=== PATIENT | male | born 1995 | race Caucasian/White ===

== ENCOUNTER 2022-12-09 19:48 | Emergency (ER) | payer SELFPAY ==
[2022-12-09 19:53] VITALS: BP 135/77; PULSE 82; RESP 16; TEMP 36.8; O2SAT 98; BMI 45.6
--- NOTE | 2022-12-09 20:19 | ED.SKABFB1 ---
HPI - Skin/Abscess/Foreign Bdy General Chief complaint: Skin/Abscess/Foreign Body Stated complaint: rash Time Seen by Provider: 12/09/22 20:10 Source: patient Mode of arrival: walk-in History of Present Illness HPI narrative: 27-year-old male with a history of hypoglycemia And a history of hidradenitis presents for evaluation of a skin rash on his anterior chest wall, abdomen, underneath both armpits, on his lower abdominal wall and buttocks. The patient states that several weeks ago that he had poison emmy because he developed a salmon-colored rash underneath his left breast. The rash spread out onto the abdominal wall. He states that this rash is getting better after using poison emmy so but he has been itching and areas where the rash itches and has now broken out in a red tender area on his lower abdominal wall at his pants line. He denies any spread of this into his groin. He has not had a fever. He states he had nodules underneath his armpits that are getting better. He has had these in the past. This is consistent with hidradenitis. The rash on his abdominal wall is consistent with pityriasis rosea and he appears to have abdominal wall cellulitis. He states he is mostly concerned because he had several abdominal surgeries in the past with mesh. He is not having any fevers, lower abdominal pain, nausea or vomiting. MD complaint: Reports rash Related Data Allergies Allergy/AdvReac Type Severity Reaction Status Date / Time No Known Drug Allergies Allergy Verified 12/09/22 19:57 Review of Systems ROS Status of ROS 10 or more systems reviewed and unremarkable except as noted in history and below Exam Narrative Exam Narrative: Nurses note and vital signs reviewed and patient is not hypoxic. General: Alert, nontoxic, overweight male, no respiratory distress Skin: Warm, Dry. There is approximately 3 x 2 cm area of a salmon-colored flat eruption with multiple salmon-colored irregular shaped nontender nonindurated lesions on the abdominal wall and chest wall adjacent to this herald patch. The patient has several areas under both armpits that appear to be resolving areas of hidradenitis. On the lower abdominal wall distal to the umbilicus and closer to the patient's parent line there is an approximately 8 cm x 4 cm area of erythema with a lymphangitic streak going approximately 6 cm to the right. Abdomen is otherwise soft, nondistended nontender. There are no petechiae or purpura noted Head: Normocephalic, atraumatic Eye: Normal conjunctiva, no drainage, EOMI. PERRL Ears, Nose, Mouth, and Throat: oral mucosa is moist. Cardiovascular: Regular Rate and Rhythm Respiratory: Patient is in no distress, no accessory muscle use, lungs are clear to auscultation, no wheezing, rales or rhonchi Back: non-tender, no CVA tenderness bilaterally to percussion. GI: Normal bowel sounds, no tenderness to palpation, no masses appreciated. Musculoskeletal: The patient has no evidence of calf tenderness, no pitting edema, symmetrical pulses noted bilaterally Neurological: A&O x4, normal speech Psychiatric: Cooperative Constitutional Vital Signs, click to edit/add: Last Vital Signs Temp 98.2 F 12/09/22 19:53 Pulse 82 12/09/22 19:53 Resp 16 12/09/22 19:53 BP 135/77 12/09/22 19:53 Pulse Ox 98 12/09/22 19:53 Course Vital Signs Vital signs: Vital Signs Temperature 98.2 F 12/09/22 19:53 Pulse Rate 82 12/09/22 19:53 Respiratory Rate 16 12/09/22 19:53 Blood Pressure 135/77 12/09/22 19:53 Pulse Oximetry 98 12/09/22 19:53 Temperature 98.2 F 12/09/22 19:53 Pulse Rate 82 12/09/22 19:53 Respiratory Rate 16 12/09/22 19:53 Blood Pressure 135/77 12/09/22 19:53 Pulse Oximetry 98 12/09/22 19:53 MDM - Skin/Abscess/Foreign Bdy MDM Narrative Medical decision making narrative: Patient presents for evaluation of a lower abdominal rash with redness and tenderness after scratching this area. He is not diabetic but states he has hypoglycemia. He is overweight and states that he sweats a lot at work. He appears to have a lower abdominal cellulitis in this area as well as a resolving case of pityriasis rosea on his abdominal wall and chest wall. He also has healing areas of hidradenitis. He has not had any fever. There is no drainage in any of these lesions that I can culture. He was medicated in emergency department with a 75 mg of Augmentin and will be discharged home with a prescription for the same. I encouraged him to use warm compresses on this area. He has not had a fever. He has had abdominal surgery but the cellulitis in his lower abdominal wall does not likely approximate the mesh of his abdomen and appears to be a local cellulitis to the lower abdominal wall. Discharge Plan Discharge Chief Complaint: Skin/Abscess/Foreign Body Clinical Impression: Pityriasis in adult, Cellulitis of abdominal wall, Hidradenitis Patient Disposition: Home, Self-Care Time of Disposition Decision: 20:18 Condition: Good Instructions: Cellulitis (ED), Seborrheic Dermatitis (DC), Hidradenitis Suppurativa (ED) Stand Alone Forms: Portal Instructions Referrals: Steve Cheung MD [Primary Care Provider] - 1 week
[2022-12-09] MEDS: AMOXICILLIN/POTASSIUM CLAV 1 TAB TABLET PO (20:36)
== END 2022-12-09 20:50 | disposition home or self-care (01) ==
PROVIDERS: Emergency Provider Emergency Medicine; PCP Family Medicine
DX: L21.0 Seborrhea capitis (principal); L03.311 Cellulitis of abdominal wall; L73.2 Hidradenitis suppurativa
CPT/HCPCS: 99283

== ENCOUNTER 2023-03-05 15:41 | Emergency (ER) | payer SELFPAY ==
[2023-03-05] VITALS (30 sets, daily range): BP systolic 107–128; BP diastolic 63–72; PULSE 79–80; RESP 18; TEMP 36.8; O2SAT 96–99; BMI 45.6
--- NOTE | 2023-03-05 16:48 | XR_ITS ---
The [address] [address] Patient Name: DAMION MANCINI MRN: [id number] date: 1995 Sex: M Assigned Patient Location: ED.MAIN Current Patient Location: ER Accession/Order Number: [id number] Exam Date: 03/05/2023 16:50 Report Date: 03/05/2023 17:31 At the request of: MAURO JACOBSEN Procedure: XR abdomen 1V EXAM: XR abdomen 1V HISTORY: Right lower quadrant abdominal pain COMPARISON: None. TECHNIQUE: 3 views FINDINGS: IMPRESSION: Stool burden is unremarkable. Bowel gas pattern is nonobstructed. No free intraperitoneal air or visualized intra-abdominal calcification. No visualized acute osseous abnormality. Chronic abnormal morphology of the right femoral head. The right hip joint is unremarkable. The left hip joint, pubic symphysis and sacroiliac joints along with the visualized spine exhibit no abnormality. Electronically authenticated by: DAMION GRIFFIN Date: 03/05/2023 17:31
--- NOTE | 2023-03-05 17:31 | CT_ITS ---
The [address] [address] Patient Name: DAMION MANCINI MRN: [id number] date: 1995 Sex: M Assigned Patient Location: ER Current Patient Location: ER Accession/Order Number: [id number] Exam Date: 03/05/2023 17:45 Report Date: 03/05/2023 18:47 At the request of: MAURO JACOBSEN Procedure: CT abdomen pelvis w con EXAM: CT abdomen pelvis w con HISTORY: Rule out incarceration vs strangle, abdominal pain. Constipation. COMPARISON: None. TECHNIQUE: Enhanced helical acquisition obtained through the abdomen and the pelvis. FINDINGS: The visualized lung bases and pleural spaces are clear. Unremarkable gallbladder. No biliary ductal dilatation. The liver, spleen, pancreas, adrenal glands and the kidneys are unremarkable. No enlarged lymph nodes within the abdomen or the pelvis. Large right spigelian hernia with defect measuring approximately 5.6 cm, containing omental and mesenteric fat with extensive stranding of the fat as well as an area of fat necrosis. There is protrusion of a nonobstructed distal ileal small bowel loop through the defect into the proximal aspect of the hernia sac. Normal appendix. CT/CT abdomen pelvis w con IMPRESSION: Large right spigelian hernia containing omentum and mesenteric fat with extensive stranding as well as an area of fat necrosis. Protrusion of distal ileal small bowel through the defect into the proximal aspect of the hernia sac without obstruction. Electronically authenticated by: POP VERA Date: 03/05/2023 18:47
[2023-03-05] MEDS: 0.9 % SODIUM CHLORIDE 1,000 ML 1000 ML IV (18:00)
[2023-03-05 18:05] LABS: Basophils Percent Auto 0.4 % (0.2-2.0); Eosinophils Absolute Auto 0.2 10^3/uL (0.0-0.7); Eosinophils Percent Auto 2.1 % (0.9-7.0); Hematocrit 45.8 % (42.0-54.0); Hemoglobin 15.1 g/dL (14.0-18.0); Immature Granulocytes Abs Auto 0.03 10^3/uL (0.00-0.03); Immature Granulocytes Pct Auto 0.3 % (0.0-0.5); Lymphocytes Absolute Auto 2.7 10^3/uL (1.2-3.8); Lymphocytes Percent Auto 24.1 % (20.5-60.0); Mean Corpuscular Volume 88.1 fL (80.0-94.0); Mean Platelet Volume 10.8 fL (9.5-13.5); Monocytes Absolute Auto 1.4 10^3/uL (0.3-0.8); Monocytes Percent Auto 12.1 % (1.7-12.0); Neutrophils Absolute Auto 6.8 10^3/uL (1.4-6.5); Platelet Count 237 10^3/uL (150-450); Red Cell Distribution Width 12.3 % (11.0-15.0); White Blood Count 11.2 10^3/uL (4.0-11.0)
[2023-03-05 18:16] LABS: Alanine Aminotransferase 52 U/L (16-63); Albumin Globulin Ratio 1.1; Albumin Level 4.3 g/dL (3.4-5.0); Alkaline Phosphatase 62 U/L (46-116); Anion Gap 13.2; Aspartate Amino Transferase 19 U/L (15-37); BUN Creatinine Ratio 21.5; Bilirubin Total 0.7 mg/dL (0.2-1.0); Calcium 9.3 mg/dL (8.5-10.1); Carbon Dioxide 27.6 mmol/L (21.0-32.0); Chloride 99 mmol/L (98-107); Estimated GFR (African America >60 (>=60); Estimated GFR (Non-African Ame >60 (>=60); Glucose 97 mg/dL (74-106); Potassium 3.8 mmol/L (3.5-5.1); Sodium 136 mmol/L (136-145); Total Protein 8.3 g/dL (6.4-8.2)
--- NOTE | 2023-03-05 18:32 | ED_ITS ---
HPI - General Adult General Chief complaint: Abdominal Pain Stated complaint: PROBLEMS WITH GOING TO BATHROOM Time Seen by Provider: 03/05/23 16:03 Source: patient Mode of arrival: walk-in History of Present Illness HPI narrative: Patient is a 27-year-old male who is presenting to the ER with chief complaint of right lower quadrant abdominal pain, concern for hernia complications. Patient has had multiple abdominal surgeries in the past by Dr. Delacruz, and also Dr. Hendrickson in [place] as well. Patient is a child around 10 years old have appendicitis. Patient says that he was having a bowel movement where he was pushing really hard after his appendicitis surgery and he created a abdominal wall hernia. Patient's had several right lower quadrant abdominal wall hernia surgeries, he initially had a mesh that was placed by Dr. Delacruz. The mesh became infected, and eventually that was taken out. Patient says that he still has a small piece of mesh to the right lower quadrant. Patient says that he typically will have the hernia to the right lower quadrant and he can push it back in. Patient also is having redness to the skin to the right lower quadrant as well. Patient has had cellulitis to that area as well. Patient does not have his appendix. Patient has no fever or chills. Patient does not have much pain unless he is hitting his abdomen against a hard object. Patient has no difficulty urinating. No testicular pain. Patient is passing small intermittent hard stool since Friday. Patient says that he believes his hernia has come out since Friday and has not been able to self reduce it like he typically does. Patient has been passing gas. No nausea or vomiting. Mother at bedside All systems are negative except as noted/marked. All systems reviewed and otherwise negative. Nurses note and vital signs reviewed and patient is not hypoxic. General: The patient appears well and in no apparent distress. Patient is resting comfortably on cart. Patient is not toxic, lethargic, or listless Skin: Warm, dry, no pallor noted. There is no rash noted. No petechiae, purpura. Head: Normocephalic, atraumatic Eye: Normal conjunctiva, no drainage, EOMI. PERRL Ears, Nose, Mouth, and Throat: oral mucosa is moist. Nares patent. Mouth without vesicles. Cardiovascular: Regular Rate and Rhythm, no murmur, gallop, rub Respiratory: Patient is in no distress, no accessory muscle use, lungs are clear to auscultation, no wheezing, rales or rhonchi Back: non-tender, no CVA tenderness bilaterally to percussion. No CT LS midline pain GI: Obese, moderate tenderness to palpation to the right lower quadrant, the ventral wall hernia is palpated. Patient does have diffuse redness to the right lower quadrant as well. No tenderness to palpation, no masses appreciated. No rebound, guarding, or rigidity noted. No distention Musculoskeletal: Patient has full range of motion of all of the extremities, no motor, sensory, or focal neurological deficits Neurological: A&O x4, normal speech Psychiatric: Cooperative Related Data Allergies Allergy/AdvReac Type Severity Reaction Status Date / Time No Known Drug Allergies Allergy Verified 12/09/22 19:57 Exam Constitutional Vital Signs, click to edit/add: Last Vital Signs Temp 98.2 F 03/05/23 15:59 Pulse 80 03/05/23 15:59 Resp 18 03/05/23 15:59 BP 127/72 03/05/23 19:27 Pulse Ox 99 03/05/23 19:50 O2 Del Method Room Air 03/05/23 15:59 Course Vital Signs Vital signs: Vital Signs Temperature 98.2 F 03/05/23 15:59 Pulse Rate 80 03/05/23 15:59 Respiratory Rate 18 03/05/23 15:59 Blood Pressure 128/69 03/05/23 15:59 Pulse Oximetry 97 03/05/23 15:59 Oxygen Delivery Method Room Air 03/05/23 15:59 Temperature 98.2 F 03/05/23 15:59 Pulse Rate 80 03/05/23 15:59 Respiratory Rate 18 03/05/23 15:59 Blood Pressure 127/72 03/05/23 19:27 Pulse Oximetry 99 03/05/23 19:50 Oxygen Delivery Method Room Air 03/05/23 15:59 Medical Decision Making [facility] Narrative Medical decision making narrative: My initial history and physical exam I attempted to reduce patient's right lower quadrant ventral wall hernia. Soft pressure was done for approximately 5 minutes without relief. Patient tolerated well without difficulty. Patient had IV labs done, along with CT of the abdomen pelvis with IV contrast along with lactic acid and given 1 L of IV fluid. KUB XR: Stool burden is unremarkable. Bowel gas pattern is nonobstructed. No free intraperitoneal air or visualized intra-abdominal calcification. No visualized acute osseous abnormality. Chronic abnormal morphology of the right femoral head. The right hip joint is unremarkable. The left hip joint, pubic symphysis and sacroiliac joints along with the visualized spine exhibit no abnormality. Patient's white blood cell count is 11.2, lactic acid is negative. Patient's CT report shows: IMPRESSION: Large right spigelian hernia containing omentum and mesenteric fat with extensive stranding as well as an area of fat necrosis. Protrusion of distal ileal small bowel through the defect into the proximal aspect of the hernia sac without obstruction. [address] I have spoken to Dr. Hwang. Secondary to having the Spigelian hernia with skin changes of early cellulitis and the fat necrosis and having previous surgeries, is recommended that patient follow-up at a tertiary care center. 190 Patient is agreeing to be transferred to [facility] where Dr. Hendrickson has done surgeries before. Mother at bedside, she agrees. Phone call has been made to [facility] for transfer. Patient's case has been transitioned to Dr. Romero for final disposition and transfer To tertiary care center as recommended by Dr. Hwang.. Critical care time 31 minutes exclusive from separate billable procedures that were performed. The following was considered in the determination of critical care but not limited to the level of medical decision making, intensive cardiac and/or respiratory monitoring, frequent vital sign monitoring, evaluation of laboratory studies, evaluation of radiographic studies, oxygen monitoring, and constant monitoring and speaking to family at bedside Lab Data Lab results reviewed: Yes I reviewed the patient's lab results Labs: Lab Results 03/05/23 Range/Units 17:43 WBC 11.2 H (4.0-11.0) 10^3/uL RBC 5.20 (4.70-6.10) 10^6/uL Hgb 15.1 (14.0-18.0) g/dL Hct 45.8 (42.0-54.0) % MCV 88.1 (80.0-94.0) fL MCH 29.0 (25.9-34.0) pg MCHC 33.0 (29.9-35.2) g/dL RDW 12.3 (11.0-15.0) % Plt Count 237 (150-450) 10^3/uL MPV 10.8 (9.5-13.5) fL Neut % (Auto) 61.0 (43.0-75.0) % Lymph % (Auto) 24.1 (20.5-60.0) % Atlantic % (Auto) 12.1 H (1.7-12.0) % Eos % (Auto) 2.1 (0.9-7.0) % Baso % (Auto) 0.4 (0.2-2.0) % Neut # (Auto) 6.8 H (1.4-6.5) 10^3/uL Lymph # (Auto) 2.7 (1.2-3.8) 10^3/uL Atlantic # (Auto) 1.4 H (0.3-0.8) 10^3/uL Eos # (Auto) 0.2 (0.0-0.7) 10^3/uL Baso # (Auto) 0.0 (0.0-0.1) 10^3/uL Abs Immat Gran (auto) 0.03 (0.00-0.03) 10^3/uL Imm/Tot Granulo (auto) 0.3 (0.0-0.5) % Sodium 136 (136-145) mmol/L Potassium 3.8 (3.5-5.1) mmol/L Chloride 99 (98-107) mmol/L Carbon Dioxide 27.6 (21.0-32.0) mmol/L Anion Gap 13.2 BUN 17.0 (7.0-18.0) mg/dL Creatinine 0.79 (0.70-1.30) mg/dL Est GFR ( Amer) >60 (>=60) Est GFR (Non-Af Amer) >60 (>=60) BUN/Creatinine Ratio 21.5 Glucose 97 (74-106) mg/dL Lactate 1.0 (0.4-2.0) mmol/L Calcium 9.3 (8.5-10.1) mg/dL Total Bilirubin 0.7 (0.2-1.0) mg/dL AST 19 (15-37) U/L ALT 52 (16-63) U/L Alkaline Phosphatase 62 (46-116) U/L Total Protein 8.3 H (6.4-8.2) g/dL Albumin 4.3 (3.4-5.0) g/dL Globulin 4.0 g/dL Albumin/Globulin Ratio 1.1 Lipase 28.0 (16.0-77.0) U/L Discharge Plan Discharge Patient Disposition: Still a Patient
[2023-03-05] MEDS: PIPERACILLIN SODIUM/TAZOBACTAM 4.5 GM in 0.9 % SODIUM CHLORIDE 50 ML IV (19:46)
[2023-03-06] VITALS (44 sets, daily range): BP systolic 101–153; BP diastolic 53–91; PULSE 84–86; RESP 16; TEMP 36.6; O2SAT 94–99
[2023-03-06] MEDS: MORPHINE SULFATE 4 MG/ML VIAL IV ×2 (00:21→07:56)
[2023-03-06] MEDS: PIPERACILLIN SODIUM/TAZOBACTAM 3.375 GM in 0.9 % SODIUM CHLORIDE 50 ML IV ×3 (07:30→23:13)
[2023-03-06] MEDS: HYDROMORPHONE HCL 2 MG/ML VIAL IV (13:50)
[2023-03-06] MEDS: 0.9 % SODIUM CHLORIDE 1,000 ML 125 ML IV ×2 (13:50→22:01)
[2023-03-06] MEDS: HYDROMORPHONE HCL 1 MG/ML CARTRIDGE IV (17:59)
[2023-03-06 18:16] LABS: Basophils Percent Auto 0.3 % (0.2-2.0); Eosinophils Absolute Auto 0.2 10^3/uL (0.0-0.7); Eosinophils Percent Auto 2.3 % (0.9-7.0); Hematocrit 42.4 % (42.0-54.0); Hemoglobin 13.6 g/dL (14.0-18.0); Immature Granulocytes Abs Auto 0.02 10^3/uL (0.00-0.03); Immature Granulocytes Pct Auto 0.2 % (0.0-0.5); Lymphocytes Absolute Auto 2.1 10^3/uL (1.2-3.8); Lymphocytes Percent Auto 23.3 % (20.5-60.0); Mean Corpuscular HGB Conc 32.1 g/dL (29.9-35.2); Mean Corpuscular Hemoglobin 28.7 pg (25.9-34.0); Mean Corpuscular Volume 89.5 fL (80.0-94.0); Mean Platelet Volume 10.4 fL (9.5-13.5); Monocytes Absolute Auto 1.1 10^3/uL (0.3-0.8); Monocytes Percent Auto 11.6 % (1.7-12.0); Neutrophils Absolute Auto 5.7 10^3/uL (1.4-6.5); Neutrophils Percent Auto 62.3 % (43.0-75.0); Platelet Count 203 10^3/uL (150-450); Red Blood Count 4.74 10^6/uL (4.70-6.10); Red Cell Distribution Width 12.2 % (11.0-15.0); White Blood Count 9.1 10^3/uL (4.0-11.0)
== END 2023-03-06 23:52 | disposition short-term general hospital (02) ==
PROVIDERS: Emergency Medicine; Emergency Medicine Emergency Medical Services; Emergency Provider Emergency Medicine; PCP Family Medicine
DX: K43.6 Other and unspecified ventral hernia with obstruction, without gangrene (principal); E66.9 Obesity, unspecified; Z68.42 Body mass index [BMI] 45.0-49.9, adult
CPT/HCPCS: 36415; 74018; 74177; 80053; 83605; 83690; 85025; 96365; 96366; 96375; 96376; 99285; J1170; Q9967

== ENCOUNTER 2024-12-30 11:23 | Outpatient (OUT) | payer BC, SELFPAY ==
--- NOTE | 2024-12-30 11:42 | CT_ITS ---
[address] [address] Patient Name: DAMION MANCINI MRN: [id number] date: 1995 Sex: M Assigned Patient Location: [facility] Current Patient Location: RAD Accession/Order Number: [id number] Exam Date: 12/30/2024 12:50 Report Date: 12/30/2024 13:06 At the request of: NIRU HASTINGS MD Procedure: CT abdomen pelvis wo con CT abdomen pelvis wo con 12/30/2024 12:57 PM SIGNS AND SYMPTOMS: ^with oral contrast ^abdominal wall hernia, redness and pain along the anterior abdominal wall TECHNIQUE: Multidetector ct axial images of the abdomen and pelvis were obtained without IV contrast. Multiplanar reformats were performed and reviewed to further define anatomy and possible pathology. CT was performed with one or more of the following dose reduction techniques: Automated exposure control, adjustment of the mA and/or kV according to patient size, or use of iterative reconstruction technique. COMPARISON: 03/05/2023 FINDINGS: Lower Chest: Within normal limits. ABDOMEN: Liver: Within normal limits. Bile Ducts: Normal caliber. Gallbladder: No calcified gallstones. Normal caliber wall. Pancreas: Within normal limits. Spleen: Within normal limits. Adrenals: Within normal limits. Kidneys: Within normal limits. Pelvis: Reproductive Organs: No pelvic masses. Ureters: Within normal limits. Bladder: Within normal limits. Bowel: Normal caliber. There is a normal appendix in the right lower quadrant. Mesenteric Lymph Nodes: No enlarged mesenteric lymph nodes. Peritoneum: No ascites or free air, no fluid collection. Vessels: within normal limits Retroperitoneum: Within normal limits. Abdominal Wall: There is a ventral wall hernia containing intraperitoneal fat, nonobstructed:, And is accompanied by fat stranding within the hernia sac in the adjacent anterior abdominal wall. 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 Mild degenerative changes are noted in the thoracolumbar spine as well as the hips and sacroiliac joints. CT/CT abdomen pelvis wo con IMPRESSION: There is a ventral wall hernia containing intraperitoneal fat, nonobstructed:, And is accompanied by fat stranding within the hernia sac in the adjacent anterior abdominal wall. This was present on the previous study. No bowel obstruction or obstructive uropathy. Additional chronic findings are noted as above. Impression dictated by: Ad Orozco M.D. 12/30/2024 1:06 PM Dictation Location: Initial State TechnologiesPEACEHEALTH SOUTHWEST MEDICAL CENTERTextingly Electronically authenticated by: [id number] Y Date: 12/30/2024 13:06
== END 2024-12-30 11:24 | disposition home or self-care (01) ==
PROVIDERS: PCP Family Medicine; Visit Provider Family Medicine
DX: K43.9 Ventral hernia without obstruction or gangrene (principal)
CPT/HCPCS: 74176

== ENCOUNTER 2025-02-09 19:41 | Emergency (ER) | payer BC, SELFPAY ==
--- OUTSIDE RECORDS SUMMARY | 2025-01-31 09:55 | XMS_ITS | Encounter Summary ---
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 Role Phone Steve Cheung MD Primary Care Provider [phone] Reason for Visit * Auth/Cert (Routine)SpecialtyDiagnoses / ProceduresReferred By ContactReferred To Contact Diagnoses Incisional hernia, without obstruction or gangrene Incisional hernia, without obstruction or gangrene [K43.2] Procedures TX RPR AA HERNIA 1ST 3-10 CM REDUCIBLE ROBOTIC INCISIONAL HERNIA REPAIR WITH MESH Jonathan Hendrickson MD [address] [address] Phone: tel: fax: [facility] Main Operating Room [address] [place] [address] Phone: tel: fax: Referral IDStatusReasonStart DateExpiration DateVisits RequestedVisits [id number] Encounter Details DateTypeDepartmentCare Team (Latest Contact Info)Wuuywieqkeo03/10/2025 9:55 AM EST - 01/31/2025 6:51 PM ESTHospital Encounter [facility] Main Operating Room [address] [place] [address] Jonathan Hendrickson MD Leonor Valleton Violeta [address] [address] Recurrent ventral hernia (Primary Dx); Incisional hernia, without obstruction or gangrene Discharge Disposition: Home or Self Care (01) Social History Tobacco UseTypesPacks/DayYears UsedDateSmoking Tobacco: NeverSmokeless Tobacco: NeverAlcohol UseStandard Drinks/WeekCommentsNot Currently0 (1 standard drink = 0.6 oz pure alcohol)Humiliation, Afraid, Rape, and Kick questionnaireAnswerDate RecordedWithin the last year, have you been afraid of your partner or ex-partner?No01/05/2025Emotionally AbusedNot on file01/05/2025Physically Abused Not on file01/05/2025Sexually AbusedNot on file01/05/2025Overall Financial Resource Strain (CARDIA)AnswerDate RecordedHow hard is it for you to pay for the very basics like food, housing, medical care, and heating?Not hard at all 03/19/2023HQ-2AnswerDate RecordedPatient Health Questionnaire-2 Score0 01/05/2025UT Safety & EnvironmentAnswerDate RecordedWithin the last year, have you been afraid of your partner or ex-partner?No04/02/2023Within the last year, have you been humiliated or emotionally abused in other ways by your partner or ex-partner?No04/02/2023Within the last year, have you been kicked, hit, slapped, or otherwise physically hurt by your partner or ex-partner?No04/02/2023Within the last year, have you been raped or forced to have any kind of sexual activity by your partner or ex-partner?No04/02/2023In the past year have you been physically or sexually abused?Unrecognized value04/02/2023TransportationAnswer Date RecordedIn the past 12 months, has lack of transportation kept you from medical appointments or from getting medications?No03/19/2023Lack of Transportation (Non-Medical)Not on file03/19/2023Housing Stability Vital Sign AnswerDate RecordedUnable to Pay for Housing in the Last YearNot on file 03/19/2023Number of Places Lived in the Last YearNot on file03/19/2023In the last 12 months, was there a time when you did not have a steady place to sleep or slept in plac[place]elter (including now)?No03/19/2023Hunger Vital SignAnswerDate RecordedWithin the past 12 months, you worried that your food would run out before you got the money to buymore.Never true03/19/2023Ran Out of Food in the Last YearNot on file03/19/2023Sex and Gender InformationValueDate RecordedSex Assigned at BdgkxHhla27/14/2025 2:08 PM EDTLegal PxjSrnn9809/20/2021 12:05 AM EDT Gender CuzadimmImch29/14/2025 2:08 PM EDTSexual OrientationHeterosexual or Wvtaukvr46/15/2025 10:34 AM EDTdocumented as of this encounter Last Filed Vital Signs Vital SignReadingTime TakenCommentsBlood Jhjrifvw765/8201/31/2025 6:00 PM EST Zwmpv942601/31/2025 6:00 PM XFEZdvcuwhfvhz41 ??C (96.8 ??F)01/31/2025 4:47 PM EST Respiratory Ahww934204/02/2024 6:00 PM ESTOxygen Ouibydetrl37%01/31/2025 6:00 PM ESTInhaled Oxygen Concentration--Weight--Height--Body Mass Index--documented in this encounter Functional Status * QuestionAnswerDate of NnbzcdclodDpnxnpFB894/8201/31/2025 6:00 PM Areli Johnson RNPulse8501/31/2025 6:00 PM Areli Johnson RNHeart Rate Source Ackddva7801/31/2025 6:00 PM Areli Johnson RNPatient PositionLying 01/31/2025 6:00 PM Areli Johnson RN * Patient's Stated Pain GoalAnswerDate of DxomvffqlrGmyghn923/10/2025 6:09 PM Areli Johnson RN * Pain Assessment TimerQuestionAnswerDate of AssessmentAuthorRestart Pain Assessment SunlpJgn41/10/2025 6:09 PM Areli Johnson RN * Sepsis Model ScoresQuestionAnswerDate of AssessmentAuthorEarly Detection of Sepsis Score0.311 6:46 PM ESTChronicles, Batchq * Pain AssessmentQuestionAnswerDate of AssessmentAuthorPain LocationAbdomen 01/31/2025 6:00 PM Areli Johnson RNWong-Wiledr FACES Pain Rating0 01/31/2025 4:47 PM Areli Johnson RNRamsarc Scale (RS): Dvzsc76204/02/2024 6:00 PM Areli Johnson RNPain TypeSurgical pain01/31/2025 6:00 PM EST Areli Puentes RNPain Assessment0-10104/02/2024 6:00 PM Areli Johnson RN * Pain ScoreAnswerDate of AssessmentAuthor5 - Moderate pain01/31/2025 6:09 PM Areli Johnson RN * Audit Alcohol ScreeningQuestionAnswerDate of AssessmentAuthorHow often do you have a drink containing alcohol? 10:10 AM Maria R Molina RN * Fall RiskQuestionAnswerDate of AssessmentAuthorWorried about fallin 01/05/2025 10:40 AM Debo Oconnell MAOne or more falls in the last year:No 01/05/2025 10:40 AM Debo Oconnell MAFeels unsteady when walkin 10:40 AM Debo Oconnell MA * Head, Ears, Eyes, Nose, and Throat (HEENT)QuestionAnswerDate of Assessment AuthorHead, Ears, Eyes, Nose, and Throat (WDL)WDL104/02/2024 5:45 PM Areli Bravo RN * Over the past 2 weeks, how often have you been bothered by any of the following problems?QuestionAnswerDate of AssessmentAuthorLittle interest or pleasure in doing thingsNot at all01/05/2025 10:40 AM Debo Oconnell MA Feeling down, depressed, or hopelessNot at all01/05/2025 10:40 AM Debo Oconnell MAPatient Health Questionnaire-2 Drkna206 10:40 AM Debo Oconnell MA * Vital SignsQuestionAnswerDate of TvjepfnyfgUireywLI994/8201/31/2025 6:00 PM Areli Johnson RNTemp96.8104/02/2024 4:47 PM Areli Johnson RNTemp ykiVdqmrejb44/10/2025 4:47 PM Areli Johnson, PDTdjdu4067/10/2025 6:00 PM Areli Johnson BJIexn7242/10/2025 6:00 PM Areli Johnson QXAfN438 01/31/2025 6:00 PM Areli Johnson RNHeart Rate TghrgiHifryve20/10/2025 6:00 PM Areli Johnson RNBP LocationLeft arm01/31/2025 6:00 PM Areli Bravo RNMAP (mmHg)9601/31/2025 6:00 PM Areli Johnson RNPulse rate from Plethysmogram (bpm)8501/31/2025 6:00 PM Areli Johnson RN Patient UqfinhniPqfyq46/10/2025 6:00 PM Areli Johnson RN * Peripheral VascularQuestionAnswerDate of AssessmentAuthorPeripheral Vascular (WDL)WDL104/02/2024 5:45 PM Areli Johnson RN * RespiratoryQuestionAnswerDate of AssessmentAuthorRespiratory (WDL)X104/02/2024 5:45 PM Areli Johnson RN * Patient's Stated Pain GoalAnswerDate of NhdiknwdgqOznyhv229/10/2025 6:09 PM Areli Johnson RN * Modified Malnutrition Screen Tool (MST)QuestionAnswerDate of AssessmentAuthor Have you been eating poorly because of a decreased appetite?No01/05/2025 10:40 AM Debo Oconnell MAHave you recently lost weight without trying?No 01/05/2025 10:40 AM Debo Oconnell MA * QuestionAnswerDate of FpvumvslsjYxrgeqTGWO34198/10/2025 4:42 PM ESTInterface, Device In * Pain AssessmentQuestionAnswerDate of AssessmentAuthorPain LocationAbdomen 01/31/2025 6:00 PM Areli Johnson RNWong-Wilder FACES Pain Rating0 01/31/2025 4:47 PM Areli Johnson RNRamsay Scale (RS): Szruk907 6:00 PM Areli Johnson RNPain TypeSurgical pain01/31/2025 6:00 PM EST Areli Puentes RNPain Assessment0-10104/02/2024 6:00 PM Areli Johnson RN * Pain ScoreAnswerDate of AssessmentAuthor5 - Moderate pain01/31/2025 6:09 PM Areli Johnson RN * Audit Alcohol ScreeningQuestionAnswerDate of AssessmentAuthorHow often do you have a drink containing alcohol? 10:10 AM Maria R Molina RN * Modified AldreteQuestionAnswerDate of EmrlllepxvMnczycXoaitboc702/10/2025 5:55 PM Areli Johnson RNRespiration 5:55 PM Areli Johnson RNCirculation 5:55 PM Areli Johnson RNConsciousness2 01/31/2025 5:55 PM Areli Johnson RNOxygen Jemwtzuwli707/10/2025 5:55 PM Areli Johnson RNModified Julian Lgwld85104/02/2024 5:55 PM Areli Johnson RN documented as of this encounter Mental Status * Modified AldreteQuestionAnswerEntry KdhpSppjmcEcykvjpy183/10/2025 5:55 PM Areli Bravo RNRespiration 5:55 PM Areli Johnson RN Frhbibcytgw319/10/2025 5:55 PM Areli Johnson RNConsciousness 5:55 PM Areli Johnson RNOxygen Geqftxxhdr263/10/2025 5:55 PM Areli Bravo RNModified Julian Hqxqn05604/02/2024 5:55 PM Areli Johnson RN documented in this encounter Discharge Instructions * Attachments The following attachments cannot be sent through Care Everywhere. * Open Hernia Repair Adult Care After Bzwi-xv-Cyaj ([place]) * General Anesthesia Adult Care After ([place]) documented in this encounter Medications at Time of Discharge MedicationSigDispense QuantityRefillsLast FilledStart DateEnd Date cefdinir (Omnicef) 300 mg capsule Take 600 mg by mouth in the morning.12/30/2024 doxycycline (Adoxa) 100 mg tablet Take 100 mg by mouth two times daily.12/30/2024 HYDROcodone-acetaminophen ([place]) 5-325 mg tablet Indications:Recurrent ventral herniaTake 1 tablet by mouth every 6 (six) hours if needed for moderate-severe pain (4-10 pain score) forup to 20 doses. 20 tablet 01/31/2025 multivit-min/ferrous fumarate (MULTI VITAMIN ORAL) Take by mouth. oxyCODONE (Roxicodone) 5 mg immediate release tablet Indications:Incarcerated incisional herniaTake 1 tablet (5 mg) by mouth every 6 (six) hours if needed for moderate pain (4-7 pain score) for up to 12 doses. 12 tablet 03/10/2023 phentermine (Adipex-P) 37.5 mg tablet Take 37.5 mg by mouth before breakfast.documented as of this encounter H&P Notes * Jonathan Hendrickson MD - 01/31/2025 11:27 AM EST H&P reviewed. The patient was examined and there are no changes to the H&P. Source Note - Jonathan Hendrickson MD - 01/05/2025 10:30 AM EDT Subjective Patient ID: Sunny Nelson Jr. is a 29 y.o. male who presents for consult due to new abdominal hernia, he has a PMH that includes previous incisional hernia repair in the RLQ in 2022. The patient explains that he recently develop a new abdominal hernia slightly medial to the previously repaired hernia. He states that even after his prior repair he felt there was weakness in this area, but he didhave any recurrent hernias until this past week. He was at a work event when a golf cart got stuck,when he helped to push the golf cart that is when he felt the hernia come through. It is causing him stabbing pain, as well as overlying skin redness, edema, and warmth. He was evaluated at an outside institution and diagnosed with cellulitis of the abdomen which he is currently taking antibiotics for. He does feel that the antibiotics have help his skin, but the hernia is still causing him pain.He endorses intermittent episodes of constipation, but denies any nausea and vomiting. Denies feverand chills. Review of Systems All other systems reviewed and are negative. Objective Visit Vitals BP 137/65 (BP Location: Left arm, Patient Position: Sitting, BP Cuff Size: Large adult) Pulse 61 Temp 36.6 ??C (97.8 ??F) (Oral) Resp 16 Physical Exam Constitutional: General: He is awake. Appearance: Normal appearance. He is obese. Pulmonary: Effort: Pulmonary effort is normal. Comments: No audible wheezing on room air Abdominal: General: There is no distension. Palpations: Abdomen is soft. Hernia: A hernia is present. Comments: Abdominal hernia, medial to previously repaired RLQ hernia- soft, tender to palpation, reducible. Skin: General: Skin is warm and dry. Neurological: Mental Status: He is alert. Psychiatric: Behavior: Behavior is cooperative. Assessment/Plan Sunny Nelson Jr is a 29 y.o. male with recurrent abdominal incisional hernia that was previouslyrepaired in 2022. The hernia is currently painful, but soft and reducible. The patient endorses no change in frequency of bowel movements- currently no c/f obstruction. Recurrent right lower quadrant incisional hernia Morbid obesity, BMI 51 Schedule for robotic right lower quadrant recurrent incisional hernia repair with mesh- patient educated on surgery, risks, and post-op course and consented Advised patient that risk of recurrence for hernia is higher due to his weight, strongly recommend he try to lose some weight if possible Can refer to bariatric surgery if patient is interested in discussing weight loss options including: medication and surgery Patient should go to emergency room if the hernia becomes non-reducible, he has unrelenting pain, or missed bowel movements due to c/f obstruction or strangulation prior to surgery 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 Subjective Patient ID: Sunny Nelson Jr. is a 29 y.o. male who presents for consult due to new abdominal hernia, he has a PMH that includes previous incisional hernia repair in the RLQ in 2022. The patient explains that he recently develop a new abdominal hernia slightly medial to the previously repaired hernia. He states that even after his prior repair he felt there was weakness in this area, but he didhave any recurrent hernias until this past week. He was at a work event when a golf cart got stuck,when he helped to push the golf cart that is when he felt the hernia come through. It is causing him stabbing pain, as well as overlying skin redness, edema, and warmth. He was evaluated at an outside institution and diagnosed with cellulitis of the abdomen which he is currently taking antibiotics for. He does feel that the antibiotics have help his skin, but the hernia is still causing him pain.He endorses intermittent episodes of constipation, but denies any nausea and vomiting. Denies feverand chills. Review of Systems All other systems reviewed and are negative. Objective Objective ls Visit Vitals BP 145/69 Pulse 80 Temp 36.3 ??C (97.3 ??F) (Temporal) Resp 18 Physical Exam Constitutional: General: He is awake. Appearance: Normal appearance. He is obese. Pulmonary: Effort: Pulmonary effort is normal. Comments: No audible wheezing on room air Abdominal: General: There is no distension. Palpations: Abdomen is soft. Hernia: A hernia is present. Comments: Abdominal hernia, medial to previously repaired RLQ hernia- soft, tender to palpation, reducible. Skin: General: Skin is warm and dry. Neurological: Mental Status: He is alert. Psychiatric: Behavior: Behavior is cooperative. Assessment/Plan Assessment/Plan is a 29 y.o. male with recurrent abdominal incisional hernia that was previouslyrepaired in 2022. The hernia is currently painful, but soft and reducible. The patient endorses no change in frequency of bowel movements- currently no c/f obstruction. Recurrent right lower quadrant incisional hernia Morbid obesity, BMI 51 Schedule for robotic right lower quadrant recurrent incisional hernia repair with mesh- patient educated on surgery, risks, and post-op course and consented Advised patient that risk of recurrence for hernia is higher due to his weight, strongly recommend he try to lose some weight if possible Can refer to bariatric surgery if patient is interested in discussing weight loss options including: medication and surgery Patient should go to emergency room if the hernia becomes non-reducible, he has unrelenting pain, or missed bowel movements due to c/f obstruction or strangulation prior to surgery Chelsea Cee, third year medical student 01/05/25 Cosigned by Jonathan Hendrickson MD at 02/02/2025 6:01 PM EST documented in this encounter Nursing Notes * Maria R Mackenzie RN - 01/31/2025 10:11 AM EST Patient to preop bay _9__. Patient instructed to remove all clothing and jewelry. Patient states understanding. Patient informed anesthesia and physician will be to the bedside to discuss procedure prior to procedural time. All questions and concerns addressed at this time. documented in this encounter Miscellaneous Notes * Op Note - Jonathan eHndrickson MD - 01/31/2025 12:46 PM EST ROBOTIC INCISIONAL HERNIA REPAIR WITH MESH Operative Note Date: 01/31/2025 Location: [facility] OR Name: Sunny Nelson , : 1995, Diagnosis Pre-op Diagnosis * Incisional hernia, without obstruction or gangrene [K43.2] Post-op Diagnosis * Incisional hernia, without obstruction or gangrene [K43.2] Procedures ROBOTIC INCISIONAL HERNIA REPAIR WITH MESH [id number] - TX RPR AA HERNIA 1ST 3-10 CM REDUCIBLE Surgeons Primary: Jonathan Hendrickson MD Resident - Assisting: Germaine Rodriguez MD Procedure Summary Anesthesia: General ASA: III Estimated Blood Loss: 50 mL Total IV Fluids: 1000 mL Drains: [REMOVED] NG/OG Tube Orogastric 18 Fr Center mouth (Removed) [REMOVED] Urethral Catheter Double-lumen 16 Fr. (Removed) Implants Type Name Action Serial No. Mesh MESH,SURCIGAL,PROGRIP,[id number] - [id number] - [id number] Implanted [id number] Staff: Radiological Engineer: Yareli Stone RN Relief Radiological Engineer: Diane Salguero RN Relief Scrub: Gaby Holland, JUNIOR COPYWRITER Scrub Person: Antonio Rogers, JUNIOR COPYWRITER Orientee Radiological Engineer: Steph Lantigua RN; Chip Billy RN Orientee Scrub: Kleber Arias Indications: Sunny Nelson Jr. is an 29 y.o. male who is having surgery for Incisional hernia, without obstruction or gangrene [K43.2]. Robotic incisional hernia repair with mesh and right side transversalis abdominis release was offered to the patient, informed consent was obtained. Procedure Details: The patient was seen in the preoperative area. The risks, benefits, complications, treatment options, non-operative alternatives, expected recovery and outcomes were discussed with the patient. The possibilities of reaction to medication, pulmonary aspiration, injury to surrounding structures, bleeding, recurrent infection, the need for additional procedures, failure to diagnose a condition, and creating a complication requiring transfusion or operation were discussed with the patient. The patient concurred with the proposed plan, giving informed consent. The site of surgery was properly noted/marked if necessary per policy. The patient has been actively warmed in preoperative area. Preopera tive antibiotics have been ordered and given within 1 hours of incision. Venous thrombosis prophylaxis have been ordered including bilateral sequential compression devices Robotic ventral hernia repair with mesh was offered to the patient. The risk include but not limited to infection, bleeding, recurrence, bowel injury, seroma, heart attack, chronic pain. Patient expressed understanding, agreed to proceed. Procedure Details: The patient was seen in the preoperative area. The risks, benefits, complications, treatment options, non-operative alternatives, expected recovery and outcomes were discussed with the patient. The possibilities of reaction to medication, pulmonary aspiration, injury to surrounding structures, bleeding, recurrent infection, the need for additional procedures, failure to diagnose a condition, and creating a complication requiring transfusion or operation were discussed with the patient. The patient concurred with the proposed plan, giving informed consent. The site of surgery was properly noted/marked if necessary per policy. The patient has been actively warmed in preoperative area. Preopera tive antibiotics have been ordered and given within 1 hours of incision. Venous thrombosis prophylaxis have been ordered including unilateral sequential compression device The patient was brought to the operating room, laid on the operating table in supine position. General anesthesia was initiated. Abdomen was prepped and draped in usual sterile fashion. Time-out was completed. Left subcostal 8 mm trocar was inserted using Optiview technique under direct visualization. CO2 insufflation was started. Another 2 8 mm trocar was inserted from left middle, and lower abdomen. 8 cm between each trocars. The da Jerardo Xi was docked. Left midabdomen 8 mm trocar as camera trocar with 30 degree up camera. Left upper quadrant trocar with the monopolar scissors, left lower quadrant trocar with the bipolar grasper. Lysis ofadhesion was performed with monopolar scissors to take down the omentum from the large right lower quadrant hernia defect. More than 8 cm in diameter hernia fascia defect was identified. The incarcerated omentum was mobilized from the fascial defect. A longitudinal right para-midline posterior rectus sheath incision was made with monopolar scissors 15cm long. It posterior rectus sheath flap was raised with monopolar scissor. Multiple hernia sac was reduced. Right transversalis abdominis releasewas performed. The fascial defect was measured with a ruler, which is 8cm long and the 8 cm wide. The fascia defect was approximated with permanent 1-0 V- lock running suture. Then 15 x 15 cm uncoated ProGrip mesh was obtained, rinsed by gentamicin solution. Then the mesh was inserted through the 8mm trocar into peritoneal cavity. The mesh was placed to the right posterior rectus space, the Velcrol side is self fixed to the fascia. The mesh was Then the posterior rectus sheath flap was closed with 2 0 V lock running suture. Defect on the posterior rectus sheath flap was closed with 2 oh STRATAFIX running sutures. Da Jerardo Xi was undocked. CO2 was desufflated, trocars were removed. Incisions were closed by 4 0 Vicryl interrupted subcuticular sutures. Dermabond was applied. Surgery was completed without complication, minimal blood loss, Needle count and the sponge count were correct. Without specimen. Abdominal binder was applied. Findings: 8 cm in diameter right lower quadrant fascial defect with significant adhesion. Complications: None; patient tolerated the procedure well. Disposition: PACU - hemodynamically stable. Condition: stable I was present during the entire operation. [phone] pager [phone] clinic F documented in this encounter Plan of Treatment DateTypeDepartmentCare Team (Latest Contact Info)Xumuaypsfqt61/15/2026 11:00 AM EDTConsult [facility] [address] [place] [address] Aminata Townsend MD [address] [facility] [place] [address] documented as of this encounter Procedures Procedure NamePriorityDate/TimeAssociated DiagnosisCommentsPR RPR AA HERNIA 1ST 3-10 CM ABAQPWPQT34/10/2025 12:46 PM EST Incisional hernia, without obstruction or gangrene POCT GLUCOSE METER UNSOLICITED NHMHGMXLnmumef58/10/2025 10:34 AM EST documented in this encounter Results * POCT glucose meter (01/31/2025 10:34 AM EST)ComponentValueRef RangeTest Method Analysis TimePerformed AtPathologist SignatureGlucose CAR7636 - 105 mg/dL 01/31/2025 10:47 AM [facility] ([place])Comment:dholasSpecimen (Source)Anatomical Location / LateralityCollection Method / VolumeCollection TimeReceived TimeBloodCapillary blood specimen / Alhtnrx9001/31/2025 10:34 AM EST01/31/2025 10:47 AM EST Narrative [facility] ([place]) - 01/31/2025 10:47 AM EST Waived Testing in the ED is performed under the ED CLIA certificate #[id number]. Authorizing ProviderResult TypeResult StatusJonathan NAPIER BLOOD ORDERABLES Final ResultPerforming OrganizationAddressCity/State/ZIP CodePhone Number [facility] [place]) [place] [address] documented in this encounter Visit Diagnoses Diagnosis Incisional hernia, without obstruction or gangrene- Primary Incisional hernia, without obstruction or gangrene Recurrent ventral hernia Incisional hernia without mention of obstruction or gangrene documented in this encounter Admitting Diagnoses Diagnosis Incisional hernia, without obstruction or gangrene documented in this encounter Administered Medications Medication OrderMAR ActionAction DateDoseRateSite fentaNYL (Sublimaze) injection 25 mcg 25 mcg, intravenous, Every 15 min PRN, moderate pain (4-7 pain score), First choice for moderate pain (4-7), Starting on Fri01/31/25 at 1701, For 4 doses, Recovery (only) Given01/31/2025 6:09 PM EST25 mcg fentaNYL (Sublimaze) injection 50 mcg 50 mcg, intravenous, Every 15 min PRN, severe pain (8-10 pain score), First choice for severe pain (8-10), Starting on Fri01/31/25 at 1701, For 4 doses, Recovery (only) Given01/31/2025 5:29 PM EST50 vgfZmqqt63/10/2025 5:03 PM EST50 mcg HYDROmorphone (Dilaudid) injection 0.5 mg 0.5 mg, intravenous, Every 15 min PRN, severe pain (8-10 pain score), Second choice for severe pain(8-10), Starting on Fri01/31/25 at 1701, For 4 doses, Recovery (only) Given01/31/2025 5:17 PM EST0.5 mg lactated Ringer's infusion 1 mL/hr, intravenous, Continuous, Starting on Fri01/31/25 at 1015, For 1 day, Preprocedure, Indication: Perioperative hydration Given01/31/2025 3:27 PM FXA815 mLNew Bag01/31/2025 12:36 PM EST1 mL/hr1 mL/hr sodium chloride flush 10 mL 10 mL, intravenous, Every 8 hours PRN, line care, Starting on Fri01/31/25 at 1012, For 99 days, Preprocedure documented in this encounter Active and Recently Administered Medications Times are shown in EST.Medication Order/ ceFAZolin (Ancef) IV syringe 3 g (COMPLETED) 3 g, intravenous, Once, On Fri01/31/25 at 1015, For 1 dose, Preprocedure, Suspected Indication (Select all that apply): Surgical Prophylaxis * 1303 (Given - Provider: ALPA Vizcarra) Medication Order// lactated Ringer's infusion 1 mL/hr, intravenous, Continuous, Starting on Fri01/31/25 at 1015, For 1 day, Preprocedure, Indication: Perioperative hydration * 1236 (New Bag - Provider: ALPA Vizcarra) * 1527 (Given - Provider: Ludwig Lara MD) * 1650 (Anesthesia Volume Adjustment - Provider: Ludwig Lara MD) * 2050 (Due: Order Ending - Provider: Automatic Discharge Provider - Comment: [Order ends at this time. Document the following action when infusion is complete: Stopped]) Medication Order/ BUPivacaine-EPINEPHrine (PF) (Marcaine w/EPI) 0.5 %-1:200,000 injection (CANCELED) As needed, Starting on Fri01/31/25 at 1338, Intraprocedure * 1338 (Given - Provider: Jonathan Hendrickson MD - Comment: INJECTED AROUND ALL SURGICAL SITES (4)) fentaNYL (Sublimaze) injection 25 mcg (CANCELED) 25 mcg, intravenous, Every 15 min PRN, moderate pain (4-7 pain score), First choice for moderate pain (4-7), Starting on Fri01/31/25 at 1701, For 4 doses, Recovery (only) * 1809 (Given - Provider: Areli Puentes RN) fentaNYL (Sublimaze) injection 50 mcg (CANCELED) 50 mcg, intravenous, Every 15 min PRN, severe pain (8-10 pain score), First choice for severe pain (8-10), Starting on Fri01/31/25 at 1701, For 4 doses, Recovery (only) * 1703 (Given - Provider: Areli Puentes, TREVA) * 1729 (Given - Provider: Areli Puentes RN) HYDROmorphone (Dilaudid) injection 0.5 mg (CANCELED) 0.5 mg, intravenous, Every 15 min PRN, severe pain (8-10 pain score), Second choice for severe pain(8-10), Starting on Fri01/31/25 at 1701, For 4 doses, Recovery (only) * 1717 (Given - Provider: Areli Puentes RN) lidocaine HCl (Xylocaine) 20 mg/mL (2 %) injection (CANCELED) As needed, Starting on Fri01/31/25 at 1338, Intraprocedure * 1338 (Given - Provider: Jonathan Hendrickson MD - Comment: INJECTED AROUND 4 SURGICAL SITES.) sodium chloride flush 10 mL(Linked Group 1) 10 mL, intravenous, Every 8 hours PRN, line care, Starting on Fri01/31/25 at 1012, For 99 days, Preprocedure Order Group 1: Insert peripheral IV (CANCELED) Once, On Fri01/31/25 at 1013, For 1 occurrence, Preprocedure And Saline lock IV (CANCELED) Once, On Fri01/31/25 at 1013, For 1 occurrence, Preprocedure And sodium chloride flush 10 mLJump to med 10 mL, intravenous, Every 8 hours PRN, line care, Starting on Fri01/31/25 at 1012, For 99 days, Preprocedure documented in this encounter Care Teams Team MemberRelationshipSpecialtyStart DateEnd Date Steve Cheung MD [address] [facility] [address] [address] PCP - General04/02/23documented as of this encounter
--- OUTSIDE RECORDS SUMMARY | 2025-01-31 11:30 | XMS_ITS | Encounter Summary ---
Author Organization [facility] Address [address] [place] [address] Care Team Providers Care Processing Tech Name Role Phone Steve Cheung MD Primary Care Provider [phone] Reason for Visit * Auth/Cert (Routine)SpecialtyDiagnoses / ProceduresReferred By ContactReferred To Contact Diagnoses Incisional hernia, without obstruction or gangrene Incisional hernia, without obstruction or gangrene [K43.2] Procedures [place] RPR AA HERNIA 1ST 3-10 CM REDUCIBLE ROBOTIC INCISIONAL HERNIA REPAIR WITH MESH Jonathan Hendrickson [facility] [address] [facility] [address] [address] Phone: tel: fax: [facility] Main Operating Room [address] [place] [address] Phone: tel: fax: Referral IDStatusReasonStart DateExpiration DateVisits RequestedVisits [id number] Encounter Details DateTypeDepartmentCare Team (Latest Contact Info)Ijhafhbelsq56/10/2025 11:30 AM EST - 01/31/2025 5:[address] [facility] Main Operating Room [address] [place] [address] Jonathan Hendrickson MD [address] [address] ROBOTIC INCISIONAL HERNIA REPAIR WITH MESH [89478 (CPT??)] Social History Tobacco UseTypesPacks/DayYears UsedDateSmoking Tobacco: NeverSmokeless [...] steady place to sleep or slept in ashelter (including now)?No03/19/2023Hunger Vital SignAnswerDate RecordedWithin the past 12 months, you worried that your food would run out before you got the money to buymore.Never true03/19/2023Ran Out of Food in the Last YearNot on file03/19/2023Sex and Gender InformationValueDate RecordedSex Assigned at RmedfBori49/14/2025 2:08 PM EDTLegal OvvHgwq9009/20/2021 12:05 AM EDT Gender FqbrfwgyWmqd73/14/2025 2:08 PM EDTSexual OrientationHeterosexual or Wusgjtuc19/15/2025 10:34 AM EDTdocumented as of this encounter Last Filed Vital Signs Vital SignReadingTime TakenCommentsBlood Veaeqzbz490/ 5:00 PM EST Jyxfh734101/31/2025 5:00 PM TXVXhttehaklzt40 ??C (96.8 ??F)01/31/2025 4:47 PM EST Respiratory Surv944204/02/2024 5:00 PM ESTOxygen Ntxkosbubs53%01/31/2025 5:00 PM ESTInhaled Oxygen Concentration--Weight--Height--Body Mass Index--documented in this encounter Functional Status * QuestionAnswerDate of FoxokyrmkdIqvqdsST027/9101/31/2025 5:00 PM Areli Johnson RNPulse9101/31/2025 5:00 PM Areli Johnson RNHeart Rate Source Zbuowen0801/31/2025 4:47 PM Areli Johnson RN * Pain Assessment TimerQuestionAnswerDate of AssessmentAuthorRestart Pain Assessment GamdlRgd82/10/2025 4:47 PM Areli Johnson RN * Sepsis Model ScoresQuestionAnswerDate of AssessmentAuthorEarly Detection of Sepsis Score0.311 4:46 PM FARRUKHChronicles, Batchq * Pain AssessmentQuestionAnswerDate of AssessmentAuthorWong-Wilder FACES Pain Dgqotn131/10/2025 4:47 PM Areli Johnson RNPain AssessmentWong-Wilder FACES01/31/2025 4:47 PM Areli Johnson RN * Audit Alcohol ScreeningQuestionAnswerDate of AssessmentAuthorHow often do you have a drink containing alcohol?111 10:10 AM Maria R Molina RN * Patient PositionAnswerDate of VcdnugwqgxKrnjizWguiplb78/15/2025 10:38 AM Debo Valentin MA * Fall RiskQuestionAnswerDate of AssessmentAuthorWorried about fallin 01/05/2025 10:40 AM Debo Oconnell MAOne or more falls in the last year:No 01/05/2025 10:40 AM Debo Oconnell MAFeels unsteady when walkin 10:40 AM Debo Oconnell MA * Head, Ears, Eyes, Nose, and Throat (HEENT)QuestionAnswerDate of Assessment AuthorHead, Ears, Eyes, Nose, and Throat (WDL)WDL104/02/2024 5:00 PM Areli Bravo RN * Over the past 2 weeks, how often have you been bothered by any of the following problems?QuestionAnswerDate of AssessmentAuthorLittle interest or pleasure in doing thingsNot at all01/05/2025 10:40 AM Debo Oconnell MA Feeling down, depressed, or hopelessNot at all01/05/2025 10:40 AM Debo Oconnell MAPatient Health Questionnaire-2 Etomx967 10:40 AM Debo Oconnell MA * Vital SignsQuestionAnswerDate of CfoyokblwsRhbryeZH646/9101/31/2025 5:00 PM Areli Johnson RNTemp96.8104/02/2024 4:47 PM Areli Johnson RNTemp sbdUqmbfusl47/10/2025 4:47 PM Areli Johnson, GWEhfol0130/10/2025 5:00 PM Areli Johnson RNResp14104/02/2024 5:00 PM Areli Johnson RNSpO297 01/31/2025 5:00 PM Areli Johnson RNHeart Rate QpbxbgJxtqbkl04/10/2025 4:47 PM Areli Johnson RNMAP (mmHg)0992001/31/2025 5:00 PM Areli Johnson RNPulse rate from Plethysmogram (bpm)9601/31/2025 5:00 PM Areli Johnson RN * Peripheral VascularQuestionAnswerDate of AssessmentAuthorPeripheral Vascular (WDL)WDL104/02/2024 5:00 PM Areli Johnson RN * BP LocationAnswerDate of AssessmentAuthorLeft arm01/05/2025 10:38 AM Debo Oconnell MA * RespiratoryQuestionAnswerDate of AssessmentAuthorRespiratory (WDL)X104/02/2024 5:00 PM Areli Johnson RN * Modified Malnutrition Screen Tool (MST)QuestionAnswerDate of AssessmentAuthor Have you been eating poorly because of a decreased appetite?No01/05/2025 10:40 AM Debo Oconnell MAHave you recently lost weight without trying?No 01/05/2025 10:40 AM Debo Oconnell MA * QuestionAnswerDate of NmitafvhpvPmskshCNZN50068/10/2025 4:42 PM ESTInterface, Device In * Pain AssessmentQuestionAnswerDate of AssessmentAuthorWong-Tina FACES Pain Rlbgbx110/10/2025 4:47 PM Areli Johnson RNPain AssessmentWong-Tina FACES01/31/2025 4:47 PM Areli Johnson RN * Audit Alcohol ScreeningQuestionAnswerDate of AssessmentAuthorHow often do you have a drink containing alcohol? 10:10 AM Maria R Molina RN * Patient PositionAnswerDate of UefysauaekRmwrzhKququdm91/15/2025 10:38 AM Debo Valentin MA * Modified AldreteQuestionAnswerDate of QczwyscrlaQgtmkgPajkbuea870/10/2025 5:00 PM Areli Johnson RNRespiration2104/02/2024 5:00 PM Areli Johnson RN Pnsyghzrmxz812/12/2024 5:00 PM Areli Johnson RNConsciousness 5:00 PM Areli Johnson RNOxygen Mvrpapchpr873/10/2025 5:00 PM Areli Bravo RNModified Julian Cmeop874 5:00 PM Areli Johnson RN documented as of this encounter Mental Status * Modified AldreteQuestionAnswerEntry IzztZcywifHxtcstms921/10/2025 5:00 PM Areli Bravo RNRespiration 5:00 PM Areli Johnson RN Yjfdzcizybg209/10/2025 5:00 PM Areli Johnson RNConsciousness 5:00 PM Areli Johnson RNOxygen Prryylqghu881/10/2025 5:00 PM Areli Bravo RNModified Juilan Supfk320 5:00 PM Areli Johnson RN documented in this encounter Discharge Instructions * Attachments The following attachments cannot be sent through Care Everywhere. * Open Hernia Repair Adult Care After Ubff-hd-Orxb (Tajik) * General Anesthesia Adult Care After (Tajik) documented in this encounter Medications at Time of Discharge MedicationSigDispense QuantityRefillsLast FilledStart DateEnd Date cefdinir (Omnicef) 300 mg capsule Take 600 mg by mouth in the morning.12/30/2024 doxycycline (Adoxa) 100 mg tablet Take 100 mg by mouth two times daily.12/30/2024 HYDROcodone-acetaminophen ([place]) 5-325 mg tablet Indications:Recurrent ventral herniaTake 1 [...] Miscellaneous Notes * Op Note - Jonathan Hendrickson MD - 01/31/2025 12:46 PM EST ROBOTIC INCISIONAL HERNIA REPAIR WITH MESH Operative Note Date: 01/31/2025 Location: [facility] OR Name: Sunny Nelson Jr., : 1995, Diagnosis Pre-op Diagnosis * Incisional hernia, without obstruction or gangrene [K43.2] Post-op Diagnosis * Incisional hernia, without obstruction or gangrene [K43.2] Procedures ROBOTIC INCISIONAL HERNIA REPAIR WITH MESH [address] - [place] RPR AA HERNIA 1ST 3-10 CM REDUCIBLE Surgeons Primary: Jonathan Hendrickson MD Resident - Assisting: Germaine Rodriguez MD Procedure Summary Anesthesia: General ASA: III Estimated Blood Loss: 50 mL Total IV Fluids: 1000 mL Drains: [REMOVED] NG/OG Tube Orogastric 18 Fr Center mouth (Removed) [REMOVED] Urethral Catheter Double-lumen 16 Fr. (Removed) Implants Type Name Action Serial No. Mesh MESH,SURCIGAL,PROGRIP,[id number] - [id number] - [id number] Implanted [id number] Staff: Cake Tester: Yareli Stone RN Relief Cake Tester: Diane Salguero RN Relief Scrub: Gaby Holland CST Scrub Person: Antonio Rogers CST Orientee Cake Tester: Steph Lantigua RN; Chip Billy RN Orientee [...] I was present during the entire operation. [phone] pager [phone] clinic F documented in this encounter Plan of Treatment DateTypeDepartmentCare Team (Latest Contact Info)Ycygeyulbli76/15/2026 11:[address] [facility] Surgery Clinic [address] [place] [id number] Aminata Townsend MD [facility] Medical [place] [address] documented as of this encounter Procedures Procedure NamePriorityDate/TimeAssociated DiagnosisCommentsPR RPR AA HERNIA 1ST 3-10 CM WVUIWAGGV18/10/2025 12:46 PM EST Incisional hernia, without obstruction or gangrene POCT GLUCOSE METER UNSOLICITED XQPCDFQOtlukpu35/10/2025 10:34 AM EST documented in this encounter Results * POCT glucose meter (01/31/2025 10:34 AM EST)ComponentValueRef RangeTest Method Analysis TimePerformed AtPathologist SignatureGlucose IVO0846 - 105 mg/dL 01/31/2025 10:47 AM [facility] ([facility])Comment:dholasSpecimen (Source)Anatomical Location / LateralityCollection Method / VolumeCollection TimeReceived TimeBloodCapillary blood specimen / Pkyqivt7801/31/2025 10:34 AM EST01/31/2025 10:47 AM EST Narrative [facility] ([facility]) - 01/31/2025 10:47 AM EST Waived Testing in the ED is performed under the ED CLIA certificate #[id number]. Authorizing ProviderResult TypeResult StatusJonathan NAPIER BLOOD ORDERABLES Final ResultPerforming OrganizationAddressCity/State/ZIP CodePhone Number [facility] ([facility] [address] [place] [address] documented in this encounter Visit Diagnoses Diagnosis Incisional hernia, without obstruction or gangrene- Primary Incisional hernia, without obstruction or gangrene Recurrent ventral hernia Incisional hernia without mention of obstruction or gangrene Incisional hernia, without obstruction or gangrene documented in this encounter Admitting Diagnoses Diagnosis Incisional hernia, without obstruction or gangrene documented in this encounter Administered Medications Medication OrderMAR ActionAction DateDoseRateSite BUPivacaine-EPINEPHrine (PF) (Marcaine w/EPI) 0.5 %-1:200,000 injection As needed, Starting on Fri01/31/25 at 1338, Intraprocedure Given01/31/2025 1:38 PM EST15 mLOperative Site fentaNYL (Sublimaze) injection 25 mcg 25 mcg, [...] doses, Recovery (only) Given01/31/2025 5:29 PM EST50 bgkQkvla56/10/2025 5:03 PM EST50 mcg HYDROmorphone (Dilaudid) injection 0.5 mg 0.5 mg, intravenous, Every 15 min PRN, severe pain (8-10 pain score), Second choice for severe pain(8-10), Starting on Fri01/31/25 at 1701, For 4 doses, Recovery (only) Given01/31/2025 5:17 PM EST0.5 mg lactated Ringer's infusion 1 mL/hr, intravenous, Continuous, Starting on Fri01/31/25 at 1015, For 1 day, Preprocedure, Indication: Perioperative hydration Given01/31/2025 3:27 PM WRY140 mLNew Bag01/31/2025 12:36 PM EST1 mL/hr1 mL/hr lidocaine HCl (Xylocaine) 20 mg/mL (2 %) injection As needed, Starting on Fri01/31/25 at 1338, Intraprocedure Given01/31/2025 1:38 PM EST15 mLOperative Site sodium chloride flush 10 mL 10 mL, [...] Surgical Prophylaxis * 1303 (Given - Provider: Josias Washington [facility]) Medication Order/ lactated Ringer's infusion 1 mL/hr, intravenous, Continuous, Starting on Fri01/31/25 at 1015, For 1 day, Preprocedure, Indication: Perioperative hydration * 1236 (New Bag - Provider: ALPA Vizcarra) * 1527 (Given - Provider: Ludwig Lara MD) * 165 (Anesthesia Volume Adjustment - Provider: Ludwig Lara MD) * 2050 (Due: Order Ending - Provider: Automatic Discharge Provider - Comment: [Order ends at this time. Document the following action when infusion is complete: Stopped]) Medication Order BUPivacaine-EPINEPHrine (PF) (Marcaine w/EPI) 0.5 %-1:200,000 injection [...] (only) * 1703 (Given - Provider: Areli Puentes RN) * 1729 (Given - Provider: Areli Puentes [...] Team MemberRelationshipSpecialtyStart DateEnd Date Steve Cheung MD [address] [place] [id number] PCP - General04/02/23documented as of this encounter
--- OUTSIDE RECORDS SUMMARY | 2025-01-31 12:42 | XMS_ITS | Encounter Summary ---
Author Organization [facility] Address [address] [place] [address] Care Team Providers Care Generator Worker Name Role Phone Steve Cheung MD Primary Care Provider [phone] Reason for Visit * Auth/Cert (Routine)SpecialtyDiagnoses / ProceduresReferred By ContactReferred To Contact Diagnoses Incisional hernia, without obstruction or gangrene Incisional hernia, without obstruction or gangrene [K43.2] Procedures TX RPR AA HERNIA 1ST 3-10 CM REDUCIBLE ROBOTIC INCISIONAL HERNIA REPAIR WITH MESH Jonathan Klein MD [address] [place] [phone] Phone: tel: fax: [facility] Main Operating Room [address] [place] [phone] Phone: tel: fax: Referral IDStatusReasonStart DateExpiration DateVisits RequestedVisits [id number] Encounter Details DateTypeDepartmentCare Team (Latest Contact Info)Olsxpuaoesn41/10/2025 12:42 PM ESTAnesthesia Event [facility] Main Operating Room [address] [place] [address] Fish Powers MD [address] [place] [phone] Magaly Champion MD [address] [place] [id number] Anesthesia Record Procedure NameResponsible AnesthesiologistAnesthesia Start TimeAnesthesia Stop TimeROBOTIC INCISIONAL HERNIA REPAIR WITH MESH (Abdomen)Fish Powers MD 01/31/25 33246904/02/24 6991QtbiTrszGlwqbQezvxhk84/10/149079414167Mp Ptcti5262Fo Start Uysz2214Fh InductionThe patient was reevaluated immediately before moderate or deep sedation use and before anesthesia induction.1257An Intubation 1258Anesthesia Iyake3301Bkla OutTime out completed (confirmed patient ID, surgeon, procedure, and operative site).7390Snqn4/4 zlvuitzk8754On Extubation 1642an stop fakj2730Fubntpy to ReceivingI completed my handoff to the receiving clinician during which we: 1. Identified the patient 2. Identified the responsible provider 3. Reviewed the pertinent medical history 4. Discussed the surgicalcourse 5. Reviewed intra-op anesthesia management and issues during anesthesia 6. Set expectations for post-procedure period 7. Allowed opportunity for questions and acknowledgement of understanding.1650An Stop* NameTotal midazolam (Versed) 1mg/mL injection2 mgfentaNYL (SUBLIMAZE) dtcioqbml163 mcg lidocaine (Xylocaine) 20 mg/ml injection 2 %100 mgpropofol 10 mg/mL250 mg succinylcholine 20 mg/mL160 glskzavjceda164 mgdexAMETHasone (Decadron) 4 MG/ML injection8 mgondansetron 2 mg/mL4 mgsugammadex 200 mg/0eC592 mglactated Ringer's yetsqzre068.23 mLLR1,007.73 mLceFAZolin (Ancef) IV syringe 3 g3 g HYDROmorphone (Dilaudid) injection 1 mg/ml1 mg * Agents Name O2 N2O Air Sevoflurane Inspired Sevoflurane N2O Inspired N2O Inspired O2 Setting * Blood No blood administrations on file. TypeDetailsPlacementRemovalOpen Wound (Any Pressure Injuries included)01/31/25; 1338; Surgical; Laparoscopic; Abdomen; Upper; 4 SURGICAL PORT SITES FOR ROBOT ARMS01/31/25 1338 by Chip Billy RNPeripheral IVPlacement Date: 01/31/25; Placement Time: 1044; Catheter Size: 20 G; Orientation: Anterior, Left; Lo cation: Wrist; Inserted by: Dr Powers; Insertion Attempts: 2; Difficult Venous Access? Yes; Patient Tolerance: Tolerated well; Removal Date: 01/31/25; Removal Time: 1044 by Maria R Mackenzie RN01/31/25 225 by Automatic Discharge ProviderETTPlacement Date: 01/31/25; Placement Time: 1257 (created via procedure documentation); Mask Ventilation: 1; Technique: Video laryngoscopy; Type: ETT - single; Single Lumen Tube Size: 7.5 mm; Cuffed: Yes; Blade Size: 3; Location: Oral; Grade View: Grade I; Insertion Attempts: 1; Placement Verification: Auscultation, Capnometry; Removal Date: 01/31/25; Removal Time: 1257 by Josias [place] [facility]01/31/25 164 by Ludwig Laar MD Peripheral IVPlacement Date: 01/31/25; Placement Time: 1258 (created via procedure documentation); Catheter Size: 18 G; Orientation: Right; Location: Hand; Site Prep: Alcohol; Local Anesth: None; Technique: Anatomical landmarks; Inserted by: ALPA Vizcarra; Insertion Attempts: 1; Difficult Venous Access? No; Removal Date: 01/31/25; Removal Time: 1258 by ALPA Vizcarra01/31/252250 by Automatic Discharge ProviderNG/OG TubePlacement Date: 01/31/25; Placement Time: 1258; Inserted by: nAu YUEN; Type: Orogastric; Size: 18 Fr; Location: Center mouth; Removal Date: 01/31/25; Removal Time: 225001/31/25 1258 by ALPA Vizcarra01/31/25 225 by Automatic Discharge Provider Urethral CatheterPlacement Date: 01/31/25; Placement Time: 1304; Inserted by: HARPER TILLEY; Type: Double-lumen; Size: 16 Fr.; Balloon Size: 10 mL; Urine Returned: Yes; Removal Date: 01/31/25; Removal Time: 1304 by Steph Lantigua RN01/31/25 162 by Chip Billy RNdocumented in this encounter Social History Tobacco UseTypesPacks/DayYears UsedDateSmoking Tobacco: NeverSmokeless [...] file03/19/2023Sex and Gender InformationValueDate RecordedSex Assigned at ZwlooPmxc09/14/2025 2:08 PM EDTLegal DqeYkwo9309/20/2021 12:05 AM EDT Gender QztlftdkLjxl83/14/2025 2:08 PM EDTSexual OrientationHeterosexual or Myxkipfu70/15/2025 10:34 AM EDTdocumented as of this encounter Functional Status * QuestionAnswerDate of KhfnglgupoXvnzpnLY921/8201/31/2025 6:00 PM Areli Johnson RNPulse8501/31/2025 6:00 PM Areli Johnson RNHeart Rate Source Mndjkth0101/31/2025 6:00 PM Areli Johnson RNPatient PositionLying 01/31/2025 6:00 PM Areli Johnson RN * Patient's Stated Pain GoalAnswerDate of FtwqwoyczlGfypjv066/10/2025 6:09 PM Areli Johnson RN * Pain Assessment TimerQuestionAnswerDate of AssessmentAuthorRestart Pain Assessment StxqaUuh89/10/2025 6:09 PM Areli Johnson RN * Sepsis Model ScoresQuestionAnswerDate of AssessmentAuthorEarly Detection of Sepsis Score0.311 6:15 PM ESTChronicles, Batchq * Pain AssessmentQuestionAnswerDate of AssessmentAuthorPain LocationAbdomen 01/31/2025 6:00 PM Areli Johnson RNWong-Wilder FACES Pain Rating0 01/31/2025 4:47 PM Areli Johnson RNRamsay Scale (RS): Osejz50504/02/2024 6:00 PM Areli Johnson RNPain TypeSurgical pain01/31/2025 6:00 PM Areli Bravo RNPain Assessment0-10104/02/2024 6:00 PM Areli Johnson RN * Pain ScoreAnswerDate of AssessmentAuthor5 - Moderate pain01/31/2025 6:09 PM Areli Johnson RN * Audit Alcohol ScreeningQuestionAnswerDate of AssessmentAuthorHow often do you have a drink containing alcohol? 10:10 AM Maria R Molina RN * Head, Ears, Eyes, Nose, and Throat (HEENT)QuestionAnswerDate of Assessment AuthorHead, Ears, Eyes, Nose, and Throat (WDL)WDL104/02/2024 5:45 PM EST Areli Puentes RN * Vital SignsQuestionAnswerDate of MfmmgmojiaYckkpnEY776/8201/31/2025 6:00 PM Areli Johnson RNTemp96.8104/02/2024 4:47 PM Areli Johnson RNTemp azsMoibhdxu48/10/2025 4:47 PM Areli Johnson RNPulse8501/31/2025 6:00 PM Areli Johnson RNResp17104/02/2024 6:00 PM Areli Johnson RPJqV962 01/31/2025 6:00 PM Areli Johnson RNHeart Rate UqcbcbDwgtuko86/10/2025 6:00 PM Areli Johnson RNBP LocationLeft arm01/31/2025 6:00 PM Areli Bravo RNMAP (mmHg)9601/31/2025 6:00 PM Areli Johnson RNPulse rate from Plethysmogram (bpm)8501/31/2025 6:00 PM Areli Johnson RN Patient FkxbtlkvEhxgi41/10/2025 6:00 PM Areli Johnson RN * Peripheral VascularQuestionAnswerDate of AssessmentAuthorPeripheral Vascular (WDL)WDL104/02/2024 5:45 PM Areli Johnson RN * RespiratoryQuestionAnswerDate of AssessmentAuthorRespiratory (WDL)X104/02/2024 5:45 PM Areli Johnson RN * Patient's Stated Pain GoalAnswerDate of MbfgidzkhqAzkrmn833/10/2025 6:09 PM Areli Johnson RN * QuestionAnswerDate of XmwznyorwuXytccaFDPX40123/10/2025 4:42 PM ESTInterface, Device In * Pain AssessmentQuestionAnswerDate of AssessmentAuthorPain LocationAbdomen 01/31/2025 6:00 PM Areli Johnson RNWong-Wilder FACES Pain Rating0 01/31/2025 4:47 PM Areli Johnson RNRamsay Scale (RS): Kucxl20404/02/2024 6:00 PM Areli Johnson RNPain TypeSurgical pain01/31/2025 6:00 PM Areli Bravo RNPain Assessment0-10104/02/2024 6:00 PM Areli Johnson RN * Pain ScoreAnswerDate of AssessmentAuthor5 - Moderate pain01/31/2025 6:09 PM Areli Johnson RN * Audit Alcohol ScreeningQuestionAnswerDate of AssessmentAuthorHow often do you have a drink containing alcohol? 10:10 AM Maria R Molina RN * Modified AldreteQuestionAnswerDate of EadqdnkblpTjygzvQotwasri637/10/2025 5:55 PM Areli Johnson RNRespiration2104/02/2024 5:55 PM Areli Johnson RNCirculation 5:55 PM Areli Johnson RNConsciousness2 01/31/2025 5:55 PM Areli Johnson RNOxygen Hnfigzwpww999/10/2025 5:55 PM Areli Johnson RNModified Julian Mpzrr33204/02/2024 5:55 PM Areli Johnson RN documented as of this encounter Mental Status * Modified AldreteQuestionAnswerEntry RirqKhxxbgBfjuougf842/10/2025 5:55 PM Areli Bravo RNRespiration2104/02/2024 5:55 PM Areli Johnson RN Raegrwbqard922/10/2025 5:55 PM Areli Johnson RNConsciousness2104/02/2024 5:55 PM Areli Johnson RNOxygen Tmxegqwiyg094/10/2025 5:55 PM EST Areli Puentes RNModified Julian Tktms89104/02/2024 5:55 PM Areli Johnson RN documented in this encounter Procedure Notes * ALPA Vizcarra - 01/31/2025 1:15 PM ESTAssociated Order(s): Airway Airway Date/Time: 01/31/2025 12:57 PM Reason: elective Airway not difficult General Information and Staff Patient location during procedure: OR Anesthesiologist: Fish Powers MD Resident/FINISH CLEANER/CAA: ALPA Vizcarra Performed: resident/FINISH CLEANER/CAA Patient Condition Indications for airway management: anesthesia Sedation level: deep Final Airway Details Preoxygenated: yes Final airway type: endotracheal airway Successful airway: ETT Cuffed: yes Successful intubation technique: video laryngoscopy Endotracheal tube insertion site: oral Blade: [place] Blade size: #3 ETT size (mm): 7.5 Cormack-Lehane Classification: grade I - full view of glottis Placement verified by: chest auscultation and capnometry Measured from: lips ETT to lips (cm): 21 Number of attempts at approach: 1 Number of other approaches attempted: 0 * ALPA Vizcarra - 01/31/2025 1:15 PM ESTAssociated Order(s): Peripheral IV Peripheral IV Date/Time: 01/31/2025 12:58 PM Inserted by: ALPA Vizcarra Placement Needle size: 18 G Laterality: right Location: hand Local anesthetic: none Site prep: alcohol Technique: anatomical landmarks Attempts: 1 documented in this encounter Plan of Treatment DateTypeDepartmentCare Team (Latest Contact Info)Kbigeyxpgwk64/15/2026 11:00 AM EDTConsult [facility] [address] [place] [address] Aminata Townsend MD [address] [facility] [place] [address] documented as of this encounter Procedures Procedure NamePriorityDate/TimeAssociated DiagnosisCommentsANESTHESIA PERIPHERAL IV AYJQDFGZKOmflihk63/10/2025 12:58 PM EST TX AN ELECTIVE ENDOTRACHEAL IYSVFRPrtyngl93/10/2025 12:57 PM EST documented in this encounter Results * Peripheral IV (01/31/2025 12:58 PM EST) Narrative oJsias [place] CAA - 01/31/2025 12:58 PM EST ALPA Vizcarra 01/31/2025 1:15 PM Peripheral IV Date/Time: 01/31/2025 12:58 PM Inserted by: ALPA Vizcarra Placement Needle size: 18 G Laterality: right Location: hand Local anesthetic: none Site prep: alcohol Technique: anatomical landmarks Attempts: 1 Authorizing ProviderResult TypeResult StatusAndbrian Powers MDANESTHESIRavi ORDERABLESFinal Result * TX AN ELECTIVE ENDOTRACHEAL AIRWAY (01/31/2025 12:57 PM EST) Narrative Josias [place] CAA - 01/31/2025 12:57 PM EST ALPA Viczarra 01/31/2025 1:16 PM Airway Date/Time: 01/31/2025 12:57 PM Reason: elective Airway not difficult General Information and Staff Patient location during procedure: OR Anesthesiologist: Fish Powers MD Resident/FINISH CLEANER/CAA: ALPA Vizcarra Performed: resident/FINISH CLEANER/ALPA Patient Condition Indications for airway management: anesthesia Sedation level: deep Final Airway Details Preoxygenated: yes Final airway type: endotracheal airway Successful airway: ETT Cuffed: yes Successful intubation technique: video laryngoscopy Endotracheal tube insertion site: oral Blade: Denton Blade size: #3 ETT size (mm): 7.5 Cormack-Lehane Classification: grade I - full view of glottis Placement verified by: chest auscultation and capnometry Measured from: lips ETT to lips (cm): 21 Number of attempts at approach: 1 Number of other approaches attempted: 0 Authorizing ProviderResult TypeResult StatusAndbrian Powers MDANESTHESIA ORDERABLESFinal Result documented in this encounter Visit Diagnoses * Anesthesia Postprocedure Evaluation - Fish Powers MD - 01/31/2025 6:16 PM EST Patient: Sunny Nelson Jr. Procedure Summary Date: 01/31/25 Room / Location: [facility] OPERATING ROOM 13 / [facility] Operating Room Anesthesia Start: 1242 Anesthesia Stop: 1650 Procedure: ROBOTIC INCISIONAL HERNIA REPAIR WITH MESH (Abdomen) Diagnosis: Incisional hernia, without obstruction or gangrene (Incisional hernia, without obstruction or gangrene [K43.2]) Surgeons: Jonathan Klein MD Responsible Provider: Fish Powers MD Anesthesia Type: general ASA Status: 3 Anesthesia Type: general Vitals Value Taken Time BP 155/78 01/31/25 17:45 Temp 36 ??C (96.8 ??F) 01/31/25 16:47 Pulse 88 01/31/25 17:45 Resp 15 01/31/25 17:45 SpO2 98 % 01/31/25 17:45 Vitals shown include unfiled device data. Anesthesia Post Evaluation Patient location during evaluation: PACU Patient participation: complete - patient participated Level of consciousness: awake and alert Pain management: adequate Airway patency: patent Cardiovascular status: acceptable Respiratory status: acceptable Hydration status: acceptable Comments: SaO2 95% on room air Patient is hemodynamically stable and is able to be discharged from PACU per anesthesia protocol. No notable events documented. * Anesthesia Preprocedure Evaluation - Fish Powers MD - 01/31/2025 10:49 AM EST Patient: Sunny Nelson Jr. Procedure Information Date/Time: 01/31/25 1130 Procedure: ROBOTIC INCISIONAL HERNIA REPAIR WITH MESH - OBSERVATION Justin KLEIN REQUESTING 5 HOURS Location: [facility] OPERATING ROOM 13 / [facility] Operating Room Surgeons: Jonathan Klein MD Relevant Problems Other (+) Arthritis Clinical information reviewed: Tobacco Allergies Meds Med Hx Surg Hx Fam Hx Soc Hx Physical Exam Airway Mallampati: II TM distance: >3 FB Neck ROM: full Cardiovascular - normal exam Dental - normal exam Pulmonary - normal exam Neurological Abdominal (+) obese Other findings: Does take a long time to wake up, denies JCARLOS Anesthesia Plan ASA 3 general The patient is not a current smoker. (Ex-smoker) Education provided regarding risk of obstructive sleep apnea. intravenous induction Postoperative pain plan includes opioids. Trial extubation is planned. Anesthetic plan and risks discussed with patient. Use of blood products discussed with patient who. Plan discussed with CAA. Additional Equipment Requests documented in this encounter Administered Medications Medication OrderMAR ActionAction DateDoseRateSite ceFAZolin (Ancef) IV syringe 3 g 3 g, intravenous, Once, On Fri01/31/25 at 1015, For 1 dose, Preprocedure, Suspected Indication (Select all that apply): Surgical Prophylaxis Indications:Incisional hernia, without obstruction or iedvyxcoNdjqe44/10/2025 1:03 PM EST3 g dexAMETHasone (Decadron) injection intravenous, As needed, Starting on Fri01/31/25 at 1520, Anesthesia Intraprocedure Given01/31/2025 3:20 PM EST8 mg fentaNYL (Sublimaze) injection intravenous, As needed, Starting on Fri01/31/25 at 1254, Anesthesia Intraprocedure Given01/31/2025 4:02 PM EST50 fgwRurvk03/10/2025 3:11 PM EST50 mcgGiven 01/31/2025 1:39 PM EST50 mcg HYDROmorphone (Dilaudid) injection intravenous, As needed, Starting on Fri01/31/25 at 1415, Anesthesia Intraprocedure Given01/31/2025 2:15 PM EST1 mg lactated Ringer's infusion 1 mL/hr, intravenous, Continuous, Starting on Fri01/31/25 at 1015, For 1 day, Preprocedure, Indication: Perioperative hydration Given01/31/2025 3:27 PM MBN429 mLNew Bag01/31/2025 12:36 PM EST1 mL/hr1 mL/hr lactated Ringer's infusion intraosseous, Continuous PRN, Starting on Fri01/31/25 at 1258, Anesthesia Intraprocedure Given01/31/2025 3:27 PM EST1,000 mLNew Bag01/31/2025 12:58 PM EST2 mL/hr2 mL/hr lidocaine HCl (Xylocaine) 20 mg/mL (2 %) injection intravenous, As needed, Starting on Fri01/31/25 at 1254, Anesthesia Intraprocedure Given01/31/2025 12:54 PM ULL086 mg midazolam (Versed) injection intravenous, As needed, Starting on Fri01/31/25 at 1243, Anesthesia Intraprocedure Given01/31/2025 12:43 PM EST2 mg ondansetron (Zofran) injection intravenous, As needed, Starting on Fri01/31/25 at 1607, Anesthesia Intraprocedure Given01/31/2025 4:07 PM EST4 mg propofol (Diprivan) 10 mg/mL infusion intravenous, As needed, Starting on Fri01/31/25 at 1254, Anesthesia Intraprocedure Given01/31/2025 12:54 PM DBV379 mg rocuronium (ZeMuron) injection intravenous, As needed, Starting on Fri01/31/25 at 1254, Anesthesia Intraprocedure Given01/31/2025 3:55 PM EST10 zyZxslo1301/31/2025 3:24 PM EST10 hgVoans3301/31/2025 3:11 PM EST10 mg succinylcholine (Anectine) injection intravenous, As needed, Starting on Fri01/31/25 at 1255, Anesthesia Intraprocedure Given01/31/2025 12:55 PM NGW897 mg sugammadex (Bridion) injection intravenous, As needed, Starting on Fri01/31/25 at 1614, Anesthesia Intraprocedure Given01/31/2025 4:14 PM XNJ274 mgdocumented in this encounter Care Teams Team MemberRelationshipSpecialtyStart DateEnd Steve Cheung MD [address] [place], [place] [address] [address] PCP - General04/02/23documented as of this encounter
--- OUTSIDE RECORDS SUMMARY | 2025-02-09 13:00 | XMS_ITS | Encounter Summary ---
Author Organization [facility] Address [address] [place] [address] Care Team Providers Care Smoking Pipe Repairer Name Role Phone Steev Cheung MD Primary Care Provider [phone] Reason for Referral * Imaging (Emergency) - AuthorizedSpecialtyDiagnoses / ProceduresReferred By ContactReferred To ContactCardiology Diagnoses Pain and swelling of right lower leg Procedures Vascular US lower extremity venous duplex right Jonathan Hendrickson MD [address] [address] Phone: tel: fax: [facility] [address] [place] [address] Phone: tel: fax: Referral IDStatusReasonStart DateExpiration DateVisits RequestedVisits [id number] Perform Procedure Reason for Visit * ReasonCommentsPost-opPatient is s/p 01/31/2025 robotic incisional hernia repair with mesh, reports right calf pain and swelling x 2 weeks. Encounter Details DateTypeDepartmentCare Team (Latest Contact Info)Skvtwomkpxv59/19/2025 1:00 PM ESTOffice Visit [facility] Surgery Clinic [address] [place] [address] Jonathan Hendrickson MD [address] [address] Right leg swelling (Primary Dx); Pain and swelling of right lower leg; Bilateral lower extremity edema Social History Tobacco UseTypesPacks/DayYears UsedDateSmoking Tobacco: NeverSmokeless Tobacco: Never Tobacco Cessation:Counseling Given: Not Answered Alcohol UseStandard Drinks/WeekCommentsNot Currently0 (1 standard drink = 0.6 oz pure alcohol)Overall Financial Resource Strain (CARDIA)AnswerDate RecordedHow hard is it for you to pay for the very basics like food, housing, medical care, and heating?Not hard at all03/19/2023HQ-2AnswerDate RecordedPatient Health Questionnaire-2 Ffzko77704/11/2024Humiliation, Afraid, Rape, and Kick questionnaireAnswerDate RecordedWithin the last year, have you been afraid of your partner or ex-partner?No02/09/2025Emotionally AbusedNot on file02/09/2025 Physically AbusedNot on file02/09/2025Sexually AbusedNot on file02/09/2025 TransportationAnswerDate RecordedIn the past 12 months, has lack of transportation kept you from medical appointments or from getting medications?No 03/19/2023Lack of Transportation (Non-Medical)Not on file03/19/2023Housing Stability Vital SignAnswerDate RecordedUnable to Pay for Housing in the Last YearNot on file03/19/2023Number of Places Lived in the Last YearNot on file 03/19/2023In the last 12 months, was there a time when you did not have a steady place to sleep or slept in ashelter (including now)?No03/19/2023Hunger Vital SignAnswerDate RecordedWithin the past 12 months, you worried that your food would run out before you got the money to buymore.Never true03/19/2023Ran Out of Food in the Last YearNot on file03/19/2023Sex and Gender InformationValueDate RecordedSex Assigned at QzqfbVhaq29/14/2025 2:08 PM EDTLegal IvuUjqn9709/20/2021 12:05 AM EDTGender LkjoltlwRmrs33/14/2025 2:08 PM EDTSexual Orientation Heterosexual or Khainzth66/15/2025 10:34 AM EDTdocumented as of this encounter Last Filed Vital Signs Vital SignReadingTime TakenCommentsBlood Guycrwhw849/ 1:02 PM EST Lmutp768902/09/2025 1:02 PM RLTZddshfksxeu63.7 ??C (98 ??F)02/09/2025 1:02 PM EST Respiratory Atix418604/11/2024 1:02 PM ESTOxygen Dwcrgltqbq14%02/09/2025 1:02 PM ESTInhaled Oxygen Concentration--Yorpmu264 kg (332 lb)02/09/2025 1:02 PM EST Height--Body Mass Index50.4801/05/2025 10:38 AM EDTdocumented in this encounter Functional Status * BPAnswerDate of TptxjuimmpQureos374/ 1:02 PM Debo Kirby MA * PulseAnswerDate of WdcwfesiepRvokah6362/19/2025 1:02 PM Debo Kirby MA * Patient PositionAnswerDate of MfyjvyuugfJivyieAfjuckn73/19/2025 1:02 PM Debo Rehman MA * Fall RiskQuestionAnswerDate of AssessmentAuthorWorried about fallin 02/09/2025 1:05 PM Debo Kirby MAOne or more falls in the last year:No 02/09/2025 1:05 PM Debo Kirby MAFeels unsteady when walkin 1:05 PM Debo Kirby MA * BPAnswerDate of VuezyfcoahDemuhk466/7902/09/2025 1:02 PM Debo Kirby MA * TempAnswerDate of ZmsmjbdckiMijigc8002/19/2025 1:02 PM Debo Kirby MA * Temp srcAnswerDate of TbsyxhedlzYtjyqhLntl85/19/2025 1:02 PM Debo Kirby MA * PulseAnswerDate of CccjkssnwgGeriya9721/19/2025 1:02 PM Debo Kirby MA * RespAnswerDate of FgltdnuysrDfgqbn2228/19/2025 1:02 PM Debo Kirby MA * DnF8ExobwjPjcu of SciyzbsvmxTqtcgp5231/19/2025 1:02 PM Debo Kirby MA * Over the past 2 weeks, how often have you been bothered by any of the following problems?QuestionAnswerDate of AssessmentAuthorLittle interest or pleasure in doing thingsNot at all02/09/2025 1:05 PM Debo Kirby MA Feeling down, depressed, or hopelessNot at all02/09/2025 1:05 PM Debo Kirby MAPatient Health Questionnaire-2 Ihmet30104/11/2024 1:05 PM Debo Kirby MA * BP LocationAnswerDate of AssessmentAuthorLeft arm02/09/2025 1:02 PM Debo Kirby MA * Modified Malnutrition Screen Tool (MST)QuestionAnswerDate of AssessmentAuthor Have you been eating poorly because of a decreased appetite?No02/09/2025 1:05 PM Debo Kirby MAHave you recently lost weight without trying?No 02/09/2025 1:05 PM Debo Kirby MA * Patient PositionAnswerDate of MnzdcmatbsOyqsxnGggedwe65/19/2025 1:02 PM Debo Rehman MA documented as of this encounter Progress Notes * Jonathan Hendrickson MD - 02/09/2025 1:00 PM EST Subjective Patient ID: Sunny Nelson Jr. is a 29 y.o. male who presents for Post-op (Patient is s/p 01/31/2025 robotic incisional hernia repair with mesh, reports right calf pain and swelling x 2 weeks. ). HPI 29 years old morbid obesity white male is status post robotic incisional hernia repair with mesh onJanuary 31, 2025. He is visiting for lower extremities well. He is tolerating full diet, normal bowel movement. Review of Systems Constitutional: Negative. HENT: Negative. Eyes: Negative. Respiratory: Negative. Cardiovascular: Positive for leg swelling. Gastrointestinal: Negative. Endocrine: Negative. Genitourinary: Negative. Musculoskeletal: Positive for back pain and myalgias. Skin: Positive for wound. Allergic/Immunologic: Negative. Neurological: Negative. Hematological: Negative. Objective Visit Vitals BP 129/79 (BP Location: Left arm, Patient Position: Sitting, BP Cuff Size: Large adult) Pulse 92 Temp 36.7 ??C (98 ??F) (Oral) Resp 16 Physical Exam Constitutional: Appearance: He is obese. HENT: Head: Atraumatic. Cardiovascular: Rate and Rhythm: Normal rate. Pulmonary: Effort: Pulmonary effort is normal. Abdominal: General: Abdomen is flat. Palpations: Abdomen is soft. Comments: Without sign of hernia recurrence. Musculoskeletal: Cervical back: Neck supple. Comments: Bilateral lower extremity edema. Neurological: Mental Status: He is alert. Assessment/Plan Postoperative visit Lower extremity edema Venous duplex of bilateral lower extremity to rule out DVT. No diagnosis found. No orders of the defined types were placed in this encounter. No results found for this or any previous visit (from the past 36 hours). No follow-ups on file. documented in this encounter Plan of Treatment DateTypeDepartmentCare Team (Latest Contact Info)Iqltcnidret85/15/2026 11:00 AM EDTConsult [facility] Clinic [address] [place] [address] Aminata Townsend MD [address] [facility] [place] [address] documented as of this encounter Results * Vascular US lower extremity venous duplex right (02/09/2025 3:32 PM EST) Anatomical RegionLateralityModalityLower ExtremitiesUltrasoundSpecimen (Source)Anatomical Location / LateralityCollection Method / VolumeCollection TimeReceived Time02/09/2025 5:50 PM EST Impressions 02/09/2025 5:50 PM EST Notes: Indication: Leg DVT, known, new pain or swelling, Dx: Pain and swelling of right lower leg [M79.661, M79.89 (ICD-10-CM)] Right: No evidence of acute deep or superficial vein thrombosis of the right lower extremity. Left: No evidence of acute deep vein thrombosis of the left common femoral vein. Conclusions: No acute deep or superficial vein thrombosis in right lower extremity. No acute deep vein thrombosis in left common femoral vein. Narrative 02/09/2025 5:50 PM EST Procedure: The veins of the right lower extremities were evaluated using real- time ultrasound, and Doppler with compression and augmentation of different segments of the lower extremity veins from the groin down to the ankle. Both deep and superficial veins evaluated. Procedure Note Sunny Olvera MD - 02/09/2025 Procedure: The veins of the right lower extremities were evaluated usingreal- time ultrasound, and Doppler with compression and augmentation ofdifferent segments of the lower extremity veins from the groin down to theankle. Both deep and superficial veins evaluated. IMPRESSION: Notes: Indication: Leg DVT, known, new pain or swelling, Dx: Pain andswelling of right lower leg [M79.661, M79.89 (ICD-10-CM)] Right: No evidence of acute deep or superficial vein thrombosis of theright lower extremity. Left: No evidence of acute deep vein thrombosis of the left common femoralvein. Conclusions: No acute deep or superficial vein thrombosis in right lower extremity. No acute deep vein thrombosis in left common femoral vein. Authorizing ProviderResult TypeResult StatusJonathan Hendrickson MDIMNisha CV VASCULAR PROCEDURESFinal Result documented in this encounter Visit Diagnoses Diagnosis Right leg swelling- Primary Pain and swelling of right lower leg Bilateral lower extremity edema Pain and swelling of right lower leg documented in this encounter Care Teams Team MemberRelationshipSpecialtyStart DateEnd Date Steve Cheung MD [address] [place] [address] PCP - General04/02/23documented as of this encounter
--- OUTSIDE RECORDS SUMMARY | 2025-02-09 14:24 | XMS_ITS | Encounter Summary ---
Author Organization [facility] Address [address] [place] [address] Care Team Providers Care Various Exceptionalities Teacher Name Role Phone Steve Cheung MD Primary Care Provider [phone] Reason for Referral * Imaging (Emergency) - AuthorizedSpecialtyDiagnoses / ProceduresReferred By ContactReferred To ContactCardiology Diagnoses Pain and swelling of right lower leg Procedures Vascular US lower extremity venous duplex right Jonathan Hendrickson MD [address] [place] [address] [address] Phone: tel: fax: [facility] Vascular Lab [address] [place] [address] Phone: tel: fax: Referral IDStatusReasonStart DateExpiration DateVisits RequestedVisits [id number] Perform Procedure Reason for Visit * Imaging (Emergency) - AuthorizedSpecialtyDiagnoses / ProceduresReferred By ContactReferred To ContactCardiology Diagnoses Pain and swelling of right lower leg Procedures Vascular US lower extremity venous duplex right Jonathan Hendrickson MD [address] [address] Phone: tel: fax: [facility] [address] [place] [address] Phone: tel: fax: Referral IDStatGregorioStaudie DateExpiration DateVisits RequestedVisits [id number] Perform Procedure Encounter Details DateTypeDepartmentCare Team (Latest Contact Info)Tnxkdlqlstm46/19/2025 2:24 PM ESTHospital Encounter [facility] Vascular Ultrasound Imaging [address] [place] [id number] Pain and swelling of right lower leg Social History Tobacco UseTypesPacks/DayYears UsedDateSmoking Tobacco: NeverSmokeless Tobacco: NeverAlcohol UseStandard Drinks/WeekCommentsNot Currently0 (1 standard drink = 0.6 oz pure alcohol)Overall Financial Resource Strain (CARDIA)AnswerDate RecordedHow hard is it for you to pay for the very basics like food, housing, medical care, and heating?Not hard at all03/19/2023HQ-2AnswerDate Recorded Patient Health Questionnaire-2 Fjxso07804/11/2024Humiliation, Afraid, Rape, and Kick questionnaireAnswerDate RecordedWithin the last year, have you been afraid of your partner or ex-partner?No02/09/2025Emotionally AbusedNot on file 02/09/2025Physically AbusedNot on file02/09/2025Sexually AbusedNot on file 02/09/2025TransportationAnswerDate RecordedIn the past 12 months, has lack [...] file03/19/2023Sex and Gender InformationValueDate RecordedSex Assigned at DtkwbRrxd63/14/2025 2:08 PM EDTLegal LihLdzf3409/20/2021 12:05 AM EDTGender NsznqztwQlqt41/14/2025 2:08 PM EDTSexual Orientation Heterosexual or Hcvkfzve96/15/2025 10:34 AM EDTdocumented as of this encounter Functional Status * BPAnswerDate of SafmdniaaeNfzjvj011/7902/09/2025 1:02 PM Debo iKrby MA * PulseAnswerDate of KkzrpgolfkIhwvfo3168/19/2025 1:02 PM Debo Kirby MA * Patient PositionAnswerDate of DpzroewmybQylzucRscjxfn03/19/2025 1:02 PM Debo Rehman MA * Fall RiskQuestionAnswerDate of AssessmentAuthorWorried about fallin 02/09/2025 1:05 PM Debo Kirby MAOne or more falls in the last year:No 02/09/2025 1:05 PM Debo Kirby MAFeels unsteady when walkin 1:05 PM Debo Kirby MA * BPAnswerDate of EofvixlevlNurdoa415/7902/09/2025 1:02 PM Debo Kirby MA * TempAnswerDate of YqbjrbsmcyLosppr0622/19/2025 1:02 PM Debo Kirby MA * Temp srcAnswerDate of LdmmecjdrpMaafanMfuj79/19/2025 1:02 PM Debo Kirby MA * PulseAnswerDate of XsdokwfcwvIhlvqs4103/19/2025 1:02 PM Debo Kirby MA * RespAnswerDate of GujscrmwsdBwfiot5876/19/2025 1:02 PM Debo Kirby MA * SzM2BqwzczAshm of FkozomjntiSrmmpd4106/19/2025 1:02 PM Debo Kirby MA * Over the past 2 weeks, how often have you been bothered by any of the following problems?QuestionAnswerDate of AssessmentAuthorLittle interest or pleasure in doing thingsNot at all02/09/2025 1:05 PM Debo Kirby MA Feeling down, depressed, or hopelessNot at all02/09/2025 1:05 PM Debo Kirby MAPatient Health Questionnaire-2 Uvurf45404/11/2024 1:05 PM Debo Kirby MA * BP LocationAnswerDate of AssessmentAuthorLeft arm02/09/2025 1:02 PM Debo Kirby MA * Modified Malnutrition Screen Tool (MST)QuestionAnswerDate of AssessmentAuthor Have you been eating poorly because of a decreased appetite?No02/09/2025 1:05 PM Debo Kirby MAHave you recently lost weight without trying?No 02/09/2025 1:05 PM Debo Kirby MA * Patient PositionAnswerDate of LpcxpbgqxkRrttxuNbbxqpd65/19/2025 1:02 PM Debo Rehman MA documented as of this encounter Plan of Treatment DateTypeDepartmentCare Team (Latest Contact Info)Vbkrkilbygl32/15/2026 11:00 AM EDTConsult [facility] Clinic [address] [place] [address] Aminata Townsend MD [address] [facility] [place] [address] documented as of this encounter Procedures Procedure NamePriorityDate/TimeAssociated DiagnosisCommentsVASC US LOWER EXTREMITY VENOUS DUPLEX DLXIWECYV85/19/2025 3:32 PM EST Pain and swelling of right lower leg documented in this encounter Results * Vascular US lower [...] common femoral vein. Authorizing ProviderResult TypeResult StatusJonathan RAYGOZA CV VASCULAR PROCEDURESFinal Result documented in this encounter Visit Diagnoses Diagnosis Pain and swelling of right lower leg documented in this encounter Care Teams Team MemberRelationshipSpecialtyStart DateEnd Date Steve Cheung MD [address] [facility] [address] [address] PCP - General04/02/23documented as of this encounter
[2025-02-09 20:12] VITALS: BP 155/90; PULSE 95; TEMP 37.4; O2SAT 97; BMI 50.3
--- OUTSIDE RECORDS SUMMARY | 2025-02-09 20:22 | XMS_ITS | Clinical Summary ---
Author Organization [facility] Address [facility] [id number] [address] [place] [address] Care Team Providers Care Millinery Salesperson Name Role Phone Unavailable Primary Care Provider Unavailabl e Social History Tobacco UseTypesPacks/DayYears UsedDateSmoking Tobacco: Never AssessedChildcare AnswerDate AwytiezzFweovxqwtBuhflxw41/12/2019EmploymentAnswerDate Recorded DavuzfyxqaBohurgp49/12/2019Sex and Gender InformationValueDate RecordedSex Assigned at BirthNot on fileLegal HwjNfys8810/27/2014 11:49 AM EDTGender Identity Not on fileSexual OrientationNot on file Plan of Treatment Not on file Medical Devices Not on file
--- OUTSIDE RECORDS SUMMARY | 2025-02-09 20:22 | XMS_ITS | Clinical Summary ---
Author Organization [facility] Address [address] [place] [address] Care Team Providers Care New Grad Rn Name Role Phone Steve Cheung MD Primary Care Provider [phone] Social History Tobacco UseTypesPacks/DayYears UsedDateSmoking Tobacco: Never AssessedSex and Gender InformationValueDate RecordedSex Assigned at BirthNot on fileLegal Sex Male09/28/2013 9:30 AM EDTGender IdentityNot on fileSexual OrientationNot on file Plan of Treatment Health MaintenanceDue DateLast DoneCommentsAnxiety Isosnlape22/24/2012Depression Cqcaeidzp46/24/2012HIV Uxdmquyxb38/24/2012Hepatitis C Taimczeuu22/24/2012 DTaP,Tdap,Td Vaccine (1 - Tdap)2013Hepatitis B Vaccine (1 of 3 - 19+ 3- dose series)2013HPV Vaccine (1 - 3-dose SCDM series)1Covid-19 Vaccine (1 - 2024- season)2024Influenza Vaccine (#1)2024 Insurance Care Teams Team MemberRelationshipSpecialtyStart DateEnd Steve Cheung MD [facility] - [facility]09/28/13
--- OUTSIDE RECORDS SUMMARY | 2025-02-09 20:23 | XMS_ITS | Clinical Summary ---
Author Organization [facility] Address [address] [place] [address] Care Team Providers Care Tooling Supervisor Name Role Phone Steve Cheung MD Primary Care Provider [phone] Allergies No known active allergies Medications MedicationSigDispense QuantityRefillsLast FilledStart DateEnd DateStatus oxyCODONE (Roxicodone) 5 mg immediate release tablet Indications:Incarcerated incisional herniaTake 1 tablet (5 mg) by mouth every 6 (six) hours if needed for moderate pain (4-7 pain score) for up to 12 doses. 12 tablet 3Active Additional Information Patient not taking.Reported on 02/09/2025 doxycycline (Adoxa) 100 mg tablet Take 100 mg by mouth two times daily.5Active cefdinir (Omnicef) 300 mg capsule Take 600 mg by mouth in the morning.5Active multivit-min/ferrous fumarate (MULTI VITAMIN ORAL) Take by mouth.Active phentermine (Adipex-P) 37.5 mg tablet Take 37.5 mg by mouth before breakfast.Active HYDROcodone-acetaminophen ([place]) 5-325 mg tablet Indications:Recurrent ventral herniaTake 1 tablet by mouth every 6 (six) hours if needed for moderate-severe pain (4-10 pain score) forup to 20 doses. 20 tablet 5Active HYDROcodone-acetaminophen ([place]) 5-325 mg tablet Indications:Recurrent ventral herniaTake 1 tablet by mouth every 6 (six) hours if needed for moderate-severe pain (4-10 pain score) forup to 20 doses. 20 tablet 11/10/527083/10/2025Discontinued Active Problems ProblemNoted DateDiagnosed DateIntestinal btvunwgjrco08/15/2025Incisional hernia, without obstruction or kxvklcru07/15/2025Recurrent ventral hernia 03/07/2023Incarcerated incisional lfxdqc4503/05/20230695Eomcdpjau77/04/2018Bipolar otozgtxn92/04/2018Chronic back pain08/25/20175513Henwkwnnqkauje21/04/2018 Msuzgsdbhugowi95/04/2018 Encounters DateTypeDepartmentCare LlymWoetlikakbk82/19/2025 2:24 PM ESTHospital Encounter [facility] Vascular Ultrasound Imaging [address] [place] [address] Pain and swelling of right lower leg02/09/2025 1:00 PM ESTOffice Visit [facility] Surgery Clinic [address] [place] [phone] Jonathan Hendrickson MD Right leg swelling (Primary Dx); Pain and swelling of right lower leg; Bilateral lower extremity edema01/31/2025 12:42 PM ESTAnesthesia Event [facility] Main Operating Room [address] [place] [address] Fish Powers MD Eisenman-Patel, Taylor, MD 01/31/2025 11:30 AM EST - 01/31/2025 5:00 PM ESTSurgery [facility] Main Operating Room [address] [place] [address] Jonathan Hendrickson MD ROBOTIC INCISIONAL HERNIA REPAIR WITH MESH [[id number] (CPT??)]01/31/2025 9:55 AM EST - 01/31/2025 6:51 PM ESTHospital Encounter [facility] Main Operating Room [address] [place] [address] Jonathan Hendrickson MD Recurrent ventral hernia (Primary Dx); Incisional hernia, without obstruction or gangrene Discharge Disposition: Home or Self Care (01)01/31/20257276Xycxut33/27/2025Travel 01/17/2025Telephone [facility] Surgery Clinic [address] [place] [phone] Vandana Kelley MA FMLA01/07/2025Telephone [facility] Surgery Clinic [address] [place] [address] Vandana Kelley MA Consult/ Wali1 11:36 AM EDT - 01/05/2025 11:59 PM EDTHospital Encounter [facility] Heart and Vascular Center Heart Station [address] [place] [address] Incisional hernia, without obstruction or gangrene Discharge Disposition: Home or Self Care ()01/05/2025 11:35 AM EDTLab [facility] Outpatient Draw Station [address] [place] [address] Incisional hernia, without obstruction or gangrene; Easy jqvbqczziifm83/15/2025 10:30 AM EDTFollow-Up [facility] Surgery Clinic [address] [place] [address] Jonathan Hendrickson MD Incisional hernia, without obstruction or gangrene (Primary Dx); Easy bruisability; Morbid obesity with BMI of 50.0-59.9, adult ([facility])12/31/2024 - 12/31/2024 11:59 PM EDTHospital Encounter [facility] [place] [address] Discharge Disposition: Home or Self Care ()from Last 3 Months Family History Medical HistoryRelationNameCommentsBipolar disorderFatherHepatitisFatherHep C DiabetesMotherRelationNameStatusCommentsFatherDeceasedMotherAlive Social History Tobacco UseTypesPacks/DayYears UsedDateSmoking Tobacco: NeverSmokeless Tobacco: Never Tobacco Cessation:Counseling Given: Not Answered Alcohol UseStandard Drinks/WeekCommentsNot Currently0 (1 standard drink = 0.6 oz pure alcohol)Overall Financial Resource Strain (CARDIA)AnswerDate RecordedHow hard is it for you to pay for the very basics like food, housing, medical care, and heating?Not hard at all3PHQ-2AnswerDate RecordedPatient Health Questionnaire-2 Fvgvc73804/11/2024Humiliation, Afraid, Rape, and Kick questionnaireAnswerDate RecordedWithin the [...] file03/19/2023Sex and Gender InformationValueDate RecordedSex Assigned at PlcogWqre65/14/2025 2:08 PM EDTLegal HjmTstj1309/20/2021 12:05 AM EDTGender RmdefzxoWuqt96/14/2025 2:08 PM EDTSexual Orientation Heterosexual or Hobydfaa42/15/2025 10:34 AM EDT Last Filed Vital Signs Vital SignReadingTime TakenCommentsBlood Jqjhrldn859/7902/09/2025 1:02 PM EST Dwxmc721802/09/2025 1:02 PM KREVpgahzjkmnu57.7 ??C (98 ??F)02/09/2025 1:02 PM EST Respiratory Qews161604/11/2024 1:02 PM ESTOxygen Xejuzbwocy50%02/09/2025 1:02 PM ESTInhaled Oxygen Concentration--Nhfogv204 kg (332 lb)02/09/2025 1:02 PM EST Soymco884.7 cm (5' 8 )01/05/2025 10:38 AM EDTBody Mass Index50.4801/05/2025 10:38 AM EDT Plan of Treatment DateTypeDepartmentCare Team (Latest Contact Info)Kdpgmxiczra07/15/2026 11:00 AM EDTConsult [facility] Surgery Clinic [address] [place] [address] Aminata Townsend MD [address] [place] [address] [place] [address] Health MaintenanceDue DateLast DoneCommentsVaricella Vaccines (1 of 2 - 13+ 2- dose series)2007dult Luthlrc4503/16/2016HPV Vaccines (1 - 3-dose SCDM series)2021OVID-19 Vaccine ( - season)2024Influenza Vaccine (#1)2024Depression Bakodwnbe88/19/909268/Zoster Vaccines (1 of 2)2044HIB VaccinesAged OutNo longer eligible based on patient's age to complete this topicIPV VaccinesAged OutNo longer eligible based on patient's age to complete this topicMeningococcal B VaccineAged OutNo longer eligible based on patient's age to complete this topicMeningococcal VaccineAged OutNo longer eligible based on patient's age to complete this topicPneumococcal Vaccine: Pediatrics (0 to 5 Years) and At-Risk Patients (6 to 64 Years)Aged OutNo longer eligible based on patient's age to complete this topicRotavirus VaccinesAged Out No longer eligible based on patient's age to complete this topic Medical Devices ImplantedTypeAreaManufacturerDevice IdentifierShelf Expiration DateModel / Serial / Liu Wanggal,Heidiip,11v69uv - [id number] - [id number] Implanted:Qty: 1 on 01/31/2025 by Jonathna Hendrickson MD at [facility]MeshN/A: AbdomenMEDTRONIC [id number]/ [id number] / [id number] / [id number] Procedures Procedure NamePriorityDate/TimeAssociated DiagnosisCommentsVASC US LOWER EXTREMITY VENOUS DUPLEX ZCRAHOCUT33/19/2025 3:32 PM EST Pain and swelling of right lower leg ANESTHESIA PERIPHERAL IV GCMUBXZRYKitjubl55/10/2025 12:58 PM EST ND AN ELECTIVE ENDOTRACHEAL HLGXSSTeyydka68/10/2025 12:57 PM EST ND RPR AA HERNIA 1ST 3-10 CM SLUNWFXZG61/10/2025 12:46 PM EST Incisional hernia, without obstruction or gangrene POCT GLUCOSE METER UNSOLICITED EHTTWPPNidcoyn89/10/2025 10:34 AM EST ECG 12-LHAKInmjhba41/15/2025 12:56 PM EDT Incisional hernia, without obstruction or gangrene CBC WITH AUTO BVVXCIAETDWZJowhnly24/15/2025 11:30 AM EDT Incisional hernia, without obstruction or gangrene PROTIME-DASUkdvsyg18/15/2025 11:30 AM EDT Incisional hernia, without obstruction or gangrene Easy bruisability BASIC METABOLIC ROEATJkwyjkv26/15/2025 11:30 AM EDT Incisional hernia, without obstruction or gangrene CBC AND NQOISTAZGRMBUwqfsgr85/15/2025 11:30 AM EDT Incisional hernia, without obstruction or gangrene MRSA/MSSA DNA VIYAIJfssbje76/15/2025 11:30 AM EDT Incisional hernia, without obstruction or gangrene CT TRANSFER OF OUTSIDE VRXZZDwgkfmr16/10/2025 12:00 AM EDT from Last 3 Months Results * Vascular US lower extremity venous [...] TypeResult StatusJonathan RAYGOZA CV VASCULAR PROCEDURESFinal Result * Peripheral IV (01/31/2025 12:58 PM EST) Narrative Josias Washington CAA - 01/31/2025 12:58 PM EST ALPA Vizcarra 01/31/2025 1:15 PM Peripheral IV Date/Time: 01/31/2025 12:58 PM Inserted by: ALPA Vizcarra Placement Needle size: 18 G Laterality: right Location: hand Local anesthetic: none Site prep: alcohol Technique: anatomical landmarks Attempts: 1 Authorizing ProviderResult TypeResult Loulou HENRY ORDERABLESFinal Result * ND AN ELECTIVE ENDOTRACHEAL AIRWAY (01/31/2025 12:57 PM EST) Josias Cancino CAA - 01/31/2025 12:57 PM EST ALPA Vizcarra 01/31/2025 1:16 PM Airway Date/Time: 01/31/2025 12:57 PM Reason: elective Airway not difficult General Information and Staff Patient location during procedure: OR Anesthesiologist: Fish Powers MD Resident/RN CORRECTIONS/ALPA: ALPA Vizcarra Performed: resident/RN CORRECTIONS/ALPA Patient Condition Indications for airway management: anesthesia [...] other approaches attempted: 0 Authorizing ProviderResult TypeResult Loulou DAVIDSONTHESIRavi ORDERABLESFinal Result * POCT glucose meter (01/31/2025 10:34 AM EST)ComponentValueRef RangeTest Method Analysis TimePerformed AtPathologist SignatureGlucose ECY4438 - 105 mg/dL 01/31/2025 10:47 AM [facility] ([facility])Comment:dholasSpecimen (Source)Anatomical Location / LateralityCollection Method / VolumeCollection TimeReceived TimeBloodCapillary blood specimen / Diuoeaa1201/31/2025 10:34 AM EST01/31/2025 10:47 AM EST Narrative [facility] ([facility]) - 01/31/2025 10:47 AM EST Waived Testing in the ED is performed under the ED CLIA certificate #[id number]. Authorizing ProviderResult TypeResult Cyrus NAPIER BLOOD ORDERABLES Final ResultPerforming OrganizationAddressCity/State/ZIP CodePhone Number [facility] ([facility]) [address] [place] [address] * ECG 12 lead (01/05/2025 12:56 PM EDT)ComponentValueRef RangeTest Method Analysis TimePerformed AtPathologist SignatureVentricular Pdvk62QBIFW MUSE Atrial Rwow08DYCEN MUSEPR Zlbrhacl659kaNM MUSEQRS KPAKTFLY883kpEV MUSEQT Lznpuwtg368lvCU MUSEQTC CALCULATION(BAZETT)417msGE MUSEP Rcdq71pdolycwLM MUSE R-Dvlb00drvztopPQ MUSET Wave Tcny43uwtcozcYC MUSESpecimen (Source)Anatomical Location / LateralityCollection Method / VolumeCollection TimeReceived Time 01/05/2025 12:22 PM EDT1 2:58 PM EDT Impressions [facility] MUSE - 01/05/2025 2:58 PM EDT Normal sinus rhythm with sinus arrhythmia Intra-ventricular conduction delay Borderline ECG When compared with ECG of 07-MAR-2023 08:50, Questionable change in QRS axis Confirmed by Onur FLORES SAMER J. (57) on 01/05/2025 2:58:35 PM Narrative Procedure Note Andra Flores MD - 01/05/2025 IMPRESSION: Normal sinus rhythm with sinus arrhythmia Intra-ventricular conduction delay Borderline ECG When compared with ECG of 07-MAR-2023 08:50, Questionable change in QRS axis Confirmed by Onur FLORES SAMER J. (57) on 01/05/2025 2:58:35 PM Authorizing ProviderResult TypeResult Cyrus KAUFMANG ORDERABLESFinal ResultPerforming OrganizationAddressCity/State/ZIP CodePhone Number [facility] MUSE * CBC auto differential (01/05/2025 11:30 AM EDT)ComponentValueRef RangeTest MethodAnalysis TimePerformed AtPathologist SignatureAuto WBC7.614.00 - 10.60 10*3/uL01/05/2025 12:12 PM [facility] ([facility])RBC5.184.20 - 5.70 10*6/uL01/05/2025 12:12 PM [facility] ([facility])Bxmnghfyip89.713.0 - 17.0 g/dL01/05/2025 12:12 PM [facility] ([facility])Xgmgzuapdl52.539.0 - 50.0 %01/05/2025 12:12 PM [facility] ([facility])MCV85.982.0 - 98.0 fL 01/05/2025 12:12 PM [facility] ([facility])MCH28.427.0 - 33.0 pg 01/05/2025 12:12 PM [facility] ([facility])MCHC33.032.0 - 35.0 g/dL 01/05/2025 12:12 PM [facility] ([facility])RDW12.111.5 - 15.0 % 01/05/2025 12:12 PM [facility] ([facility])Neutrophils %64.040.0 - 72.0 %01/05/2025 12:12 PM [facility] ([facility])Lymphocytes %23.820.0 - 45.0 %01/05/2025 12:12 PM [facility] ([facility])Monocytes %9.95.0 - 12.0 % 01/05/2025 12:12 PM [facility] ([facility])Eosinophils %1.70.0 - 6.0 % 01/05/2025 12:12 PM [facility] ([facility])Basophils %0.50.0 - 1.0 % 01/05/2025 12:12 PM [facility] ([facility])Neutrophils Absolute4.871.60 - 7.60 10*3/uL01/05/2025 12:12 PM [facility] ([facility])Lymphocytes Absolute1.811.20 - 4.00 10*3/uL01/05/2025 12:12 PM [facility] ([facility])Monocytes Absolute0.750.10 - 1.00 10*3/uL01/05/2025 12:12 PM [facility] ([facility])Eosinophils Absolute0.130.00 - 0.50 10*3/uL01/05/2025 12:12 PM [facility] ([facility])Basophils Absolute0.040.00 - 0.20 10*3/uL01/05/2025 12:12 PM [facility] ([facility])Ivjfkygbt199450 - 400 10*3/uL01/05/2025 12:12 PM [facility] ([facility])nRBC %0.00 %01/05/2025 12:12 PM [facility] ([facility])Immature Granulocytes %0.10.0 - 1.0 % 01/05/2025 12:12 PM [facility] ([facility])Immature Granulocytes Absolute0.010.00 - 0.20 10*3/uL01/05/2025 12:12 PM [facility] ([facility])Specimen (Source)Anatomical Location / LateralityCollection Method / VolumeCollection TimeReceived TimeBloodVenous blood specimen / Unknown Venipuncture / Wiqxruy1501/05/2025 11:30 AM EDT1 12:02 PM EDT Narrative Authorizing ProviderResult TypeResult StatusJonathan Hendrickson MDLAB BLOOD ORDERABLES Final ResultPerforming OrganizationAddressCity/State/ZIP CodePhone Number [facility]) [address] [place] [address] * (ABNORMAL) MRSA/MSSA DNA Nasal (01/05/2025 11:30 AM EDT)ComponentValueRef RangeTest MethodAnalysis TimePerformed AtPathologist SignatureMSSA DNAPositive (A)Mjfytrcy00/16/2025 6:19 AM [facility])MRSA DNANegative Eezjydvr54/16/2025 6:19 AM [facility] ([facility])Specimen (Source) Anatomical Location / LateralityCollection Method / VolumeCollection Time Received TimeSwabNasal structure / UnknownNon-blood Collection / Unknown 01/05/2025 11:30 AM EDT1 11:56 AM EDT Narrative [facility]) - 01/06/2025 6:19 AM EDT Testing methodology is an automated qualitative in vitro diagnostic test for the direct detection and differentiation of Staphylococcus aureus (SA) DNA and methicillin- resistant Staphylococcus aureus (MRSA) DNA from nasal swabs in patients at risk for nasal colonization. The test utilizes real-time polymerase chain reaction (PCR) for the amplification of MRSA/SA DNA and fluorogenic target-specific hybridization probes for the detection of the amplified DNA. A negative result does not preclude nasal colonization. Authorizing ProviderResult TypeResult StatusJonathan NAPIER MICROBIOLOGY - GENERAL ORDERABLESFinal ResultPerforming OrganizationAddressCity/State/ZIP Code Phone Number [facility] ([facility]) [address] [place] [address] * Protime-INR (01/05/2025 11:30 AM EDT)ComponentValueRef RangeTest Method Analysis TimePerformed AtPathologist WheqqbwoyAectxtb82.612.3 - 14.8 Seconds 01/05/2025 12:21 PM [facility] ([facility])INR1.040.90 - 1.101 12:21 PM [facility] ([facility])Comment: ACC[facility] RECOMMENDED INR FOR WARFARIN THERAPY CONDITION ?INR PROPHYLAXIS OF VENOUS THROMBOSIS ? 2-3 (HIGH-RISK SURGERY) TREATMENT OF VENOUS THROMBOSIS ? 2-3 TREATMENT OF PULMONARY EMBOLISM ?2-3 PREVENTION OF SYSTEMIC EMBOLISM: ? 2-3 ?ACUTE MYOCARDIAL INFARCTION ?TISSUE HEART VALVES ?VALVULAR HEART DISEASE ?ATRIAL FIBRILLATION ?RECURRENT SYSTEMIC EMBOLISM MECHANICAL HEART VALVE ? 2.5-3.5 FROM: ORAL ANTICOAGULANTS. ??MECHANISM OF ACTION, CLINICAL EFFECTIVENESS, AND OPTIMAL THERAPEUTIC RANGE. ??CHEST 1995;108:231S-246S. Specimen (Source)Anatomical Location / LateralityCollection Method / Volume Collection TimeReceived TimeBloodVenous blood specimen / UnknownVenipuncture / Ciqorcp1301/05/2025 11:30 AM EDT1 11:56 AM EDT Narrative Authorizing ProviderResult TypeResult StatusJonathan Hendrickson MDLAB BLOOD ORDERABLES Final ResultPerforming OrganizationAddressCity/State/ZIP CodePhone Number [facility] ([facility]) [address] [place] [address] * Basic metabolic panel (01/05/2025 11:30 AM EDT)ComponentValueRef RangeTest MethodAnalysis TimePerformed AtPathologist KgarjgurpWvebtg880916 - 145 mmol/L 01/05/2025 12:25 PM [facility] ([facility])Potassium4.33.5 - 5.1 mmol/L 01/05/2025 12:25 PM [facility] ([facility])Tdcihhqh90397 - 107 mmol/L 01/05/2025 12:25 PM [facility] ([facility])YB82626 - 31 mmol/L1 12:25 PM [facility] ([facility])PLP947 - 25 mg/dL01/05/2025 12:25 PM EDT [facility] ([facility])Creatinine0.740.70 - 1.30 mg/dL01/05/2025 12:25 PM [facility] ([facility])Dxqobfn1309 - 100 mg/dL01/05/2025 12:25 PM EDT [facility] ([facility])Calcium9.48.6 - 10.3 mg/dL01/05/2025 12:25 PM EDT [facility] ([facility])Anion Ipx326 - 20 mmol/L1 12:25 PM [facility] ([facility])qPQP565.0>60.0 mL/min/1.73m* 12:25 PM [facility] ([facility])Comment:The [facility]???s estimated glomerular filtration rate (eGFR) will no longer include consideration of race in its calculation. The National Kidney Foundation???s eGFR Task Force developed new recommendations for the estimation of the glomerular filtration rate in the [place] They recommend immediate implementation of the new equation refit without the race variable in all laboratories because the calculation does not include race. In addition to not including race in the calculation and reporting, it included diversity in its development, and has acceptable performance characteristics and potential consequences that do not disproportionately affect any one group of ind ividuals.BUN/Creatinine Ratio16. 12:25 PM [facility] ([facility])Specimen (Source)Anatomical Location / LateralityCollection Method / VolumeCollection TimeReceived TimeBloodVenous blood specimen / Unknown Venipuncture / Nrgmtir0501/05/2025 11:30 AM EDT1 12:01 PM EDT Narrative Authorizing ProviderResult TypeResult Cyrus NAPIER BLOOD ORDERABLES Final ResultPerforming OrganizationAddressCity/State/ZIP CodePhone Number [facility] ([facility]) [address] [place] [address] * CT transfer of outside films (12/31/2024 12:00 AM EDT)Specimen (Source) Anatomical Location / LateralityCollection Method / VolumeCollection Time Received Time Narrative IMAGING - 12/31/2024 1:09 PM EDT This order has been auto-finalized and does not contain a result. Authorizing ProviderResult TypeResult Cyrus REBOLLARG CT PROCEDURES Final ResultPerforming OrganizationAddressCity/State/ZIP CodePhone Number IMAGING from Last 3 Months Insurance Advance Directives * Full Code (Latest Code Status on File) Date ActivatedDate BxrdsmznqwfQcrtyqvp60/10/2025 10:12 AM01/31/2025 8:51 PM * Full Code Date ActivatedDate FtyqhvknhigBqlawtkj72/15/2023 1:43 AM03/10/2023 3:57 PM Care Teams Team MemberRelationshipSpecialtyStart DateEnd Date Steve Cheung MD [address] [place] [address] PCP - General04/02/23
--- OUTSIDE RECORDS SUMMARY | 2025-02-09 20:23 | XMS_ITS | Clinical Summary ---
Author Organization [facility] Address [address] [place] [address] Care Team Providers Care Hr Recruiter Name Role Phone Unavailable Primary Care Provider Unavailabl e Social History Tobacco UseTypesPacks/DayYears UsedDateSmoking Tobacco: Never AssessedSex and Gender InformationValueDate RecordedSex Assigned at BirthNot on fileLegal Sex Male06/05/2022 7:15 PM EDTGender IdentityNot on fileSexual OrientationNot on file Last Filed Vital Signs Vital SignReadingTime TakenCommentsBlood Ioisgxxk402/7207 12:00 PM EDT Pulse--Temperature--Respiratory Rate--Oxygen Saturation--Inhaled Oxygen Concentration--Utiarf762 kg (280 lb)09/23/2017 12:00 PM CPFHmcntw526.3 cm (5' 9 )09/23/2017 12:00 PM EDTBody Mass Index41.35009/23/2017 12:00 PM EDT Plan of Treatment Not on file
--- OUTSIDE RECORDS SUMMARY | 2025-02-09 20:23 | XMS_ITS | Encounter Summary ---
Author Organization [facility] Address [address] [place] [address] Care Team Providers Care Non Emergency Services Ambulance Driver Name Role Phone Steve Cheung MD Primary Care Provider [phone] Encounter Details DateTypeDepartmentCare Team (Latest Contact Info)Jzmeskvxrtl56/10/2025Travel Social History Tobacco UseTypesPacks/DayYears UsedDateSmoking Tobacco: NeverSmokeless [...] medical care, and heating?Not hard at all 3PHQ-2AnswerDate RecordedPatient Health Questionnaire-2 Score0 01/05/2025UT Safety & [...] file03/19/2023Sex and Gender InformationValueDate RecordedSex Assigned at QwzepArnc84/14/2025 2:08 PM EDTLegal XldCifc9909/20/2021 12:05 AM EDT Gender ZspxzeglZarg22/14/2025 2:08 PM EDTSexual OrientationHeterosexual or Qifgvvwf00/15/2025 10:34 AM EDTdocumented as of this encounter Functional Status * QuestionAnswerDate of LtlbmcozrrYlyglmSI268/8201/31/2025 6:00 PM Areli Johnson RNPulse8501/31/2025 6:00 PM Areli Johnson RNHeart Rate Source Yoxhucy1101/31/2025 6:00 PM Areli Johnson RNPatient PositionLying 01/31/2025 6:00 PM Areli Johnson RN * Patient's Stated Pain GoalAnswerDate of FdppquamrvGpqewx209/10/2025 6:09 PM Areli Johnson RN * Pain Assessment TimerQuestionAnswerDate of AssessmentAuthorRestart Pain Assessment TktqqLwv36/10/2025 6:09 PM Areli Johnson RN * Sepsis Model ScoresQuestionAnswerDate of AssessmentAuthorEarly Detection of Sepsis Score0.311 6:46 PM ESTChronicles, Batchq * Pain AssessmentQuestionAnswerDate of AssessmentAuthorPain LocationAbdomen 01/31/2025 6:00 PM Areli Johnson RNWong-Wilder FACES Pain Rating0 01/31/2025 4:47 PM Areli Johnson RNRamsay Scale (RS): Flbvi16304/02/2024 6:00 PM Areli Johnson RNPain TypeSurgical pain01/31/2025 [...] (WDL)WDL104/02/2024 5:45 PM Areli Bravo RN * Vital SignsQuestionAnswerDate of BslssvaeyvZmgyzzLU761/8201/31/2025 6:00 PM Areli Johnson RNTemp96.8104/02/2024 4:47 PM Areli Johnson RNTemp yfnAspvbpfm35/10/2025 4:47 PM Areli Johnson RNPulse8501/31/2025 6:00 PM Areli Johnson RNResp17104/02/2024 6:00 PM Areli Johnson RNSpO295 01/31/2025 6:00 PM Areli Johnson RNHeart Rate YbtczoCauyrop63/10/2025 6:00 PM Areli Johnson RNBP LocationLeft arm01/31/2025 6:00 PM Areli Bravo RNMAP (mmHg)9601/31/2025 6:00 PM Areli Johnson RNPulse rate from Plethysmogram (bpm)8501/31/2025 6:00 PM Areli Johnson RN Patient HqzkfpmsUhyey57/10/2025 6:00 PM Areli Johnson RN * Peripheral VascularQuestionAnswerDate of AssessmentAuthorPeripheral Vascular (WDL)WDL104/02/2024 5:45 PM Areli Johnson RN * RespiratoryQuestionAnswerDate of AssessmentAuthorRespiratory (WDL)X104/02/2024 5:45 PM Areli Johnson RN * Patient's Stated Pain GoalAnswerDate of BddgdskyzlCsvzhs737/10/2025 6:09 PM Areli Johnson RN * QuestionAnswerDate of KqcdqqbqvkUpptosENCI12053/10/2025 4:42 PM ESTInterface, Device In * Pain AssessmentQuestionAnswerDate of AssessmentAuthorPain LocationAbdomen 01/31/2025 6:00 PM Areli Johnson RNWong-Wilder FACES Pain Rating0 01/31/2025 4:47 PM Areli Johnson RNRamsay Scale (RS): Btcsl16004/02/2024 6:00 PM Areli Johnson RNPain TypeSurgical pain01/31/2025 6:00 PM EST Areli Puentes RNPain Assessment0-10104/02/2024 6:00 PM Areli Johnson RN * Pain ScoreAnswerDate of AssessmentAuthor5 - Moderate pain01/31/2025 6:09 PM Areli Johnson RN * Audit Alcohol ScreeningQuestionAnswerDate of AssessmentAuthorHow often do you have a drink containing alcohol? 10:10 AM Maria R Molina RN * Modified AldreteQuestionAnswerDate of EnymfekzuwSpiyolPntattxm841/10/2025 5:55 PM ESTAreli Puentes, UCVmhmpvmqvhe411/10/2025 5:55 PM Areli Johnson RN Erbsbxaqsoq237/10/2025 5:55 PM ESTAreli Puentes, YILtxbbuuyrazmh456/10/2025 5:55 PM ESTAreli Puentes, RNOxygen Wjxkwmsamc534/10/2025 5:55 PM EST Areli Puentes, RNModified Julian Uevxp368 5:55 PM Areli Johnson, RN documented as of this encounter Mental Status * Modified AldreteQuestionAnswerEntry GxrgBytewbJzjpaiph161/10/2025 5:55 PM EST Areli Puentes, KJLqkmumyweph487/10/2025 5:55 PM Areli Johnson RN Gcdljgwvbma235/10/2025 5:55 PM Areli Johnson CJKhrjvvylkyilo821/10/2025 5:55 PM ESTAreli Puentes, RNOxygen Lqvyivkpgs882/10/2025 5:55 PM EST Areli Puentes, RNModified Julian Maumi57104/02/2024 5:55 PM Areli Johnson, TREVA documented in this encounter Plan of Treatment DateTypeDepartmentCare Team (Latest Contact Info)Solkozwkooh74/15/2026 11:00 AM EDTConsult [facility] [address] [place] [id number] Aminata Townsend MD [address] [facility] [place] [address] documented as of this encounter Visit Diagnoses Not on filedocumented in this encounter Care Teams Team MemberRelationshipSpecialtyStart DateEnd Steve Cheung MD [address] [facility] [address] [address] PCP - General04/02/23documented as of this encounter
--- OUTSIDE RECORDS SUMMARY | 2025-02-09 20:24 | XMS_ITS | Patient Health Record ---
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 Ordering Physician: Niru Hastings M.D. Date of Service: 12/30/24 Procedure(s): CT abdomen pelvis wo con Accession Number(s): [id number] cc: Niru Hastings M.D. [place] [address] Patient Name: DAMION NELSON MRN: [id number] date: 1995 Sex: M Assigned Patient Location: RAD Current Patient Location: RAD Accession/Order Number: [id number] Exam Date: 12/30/2024 12:50 Report Date: 12/30/2024 13:06 At the request of: NIRU HASTINGS MD Procedure: CT abdomen pelvis wo con CT abdomen pelvis wo con 12/30/2024 12:57 PM SIGNS AND SYMPTOMS: with oral contrast abdominal wall hernia, redness and pain along the anterior abdominal wall TECHNIQUE: Multidetector ct axial images of the abdomen and pelvis were obtained without IV contrast. Multiplanar reformats were performed and reviewed to further define anatomy and possible pathology. CT was performed with one or more of the following dose reduction techniques: Automated exposure control, adjustment of the mA and/or kV according to patient size, or use of iterative reconstruction technique. COMPARISON: 03/05/2023 FINDINGS: Lower Chest: Within normal limits. ABDOMEN: Liver: Within normal limits. Bile Ducts: Normal caliber. Gallbladder: No calcified gallstones. Normal caliber wall. Pancreas: Within normal limits. Spleen: Within normal limits. Adrenals: Within normal limits. Kidneys: Within normal limits. Pelvis: Reproductive Organs: No pelvic masses. Ureters: Within normal limits. Bladder: Within normal limits. Bowel: Normal caliber. There is a normal appendix in the right lower quadrant. Mesenteric Lymph Nodes: No enlarged mesenteric lymph nodes. Peritoneum: No ascites or free air, no fluid collection. Vessels: within normal limits Retroperitoneum: Within normal limits. Abdominal Wall: There is a ventral wall hernia containing intraperitoneal fat, nonobstructed:, And is accompanied by fat stranding within the hernia sac in the adjacent anterior abdominal wall. 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 Mild degenerative changes are noted in the thoracolumbar spine as well as the hips and sacroiliac joints. CT/CT abdomen pelvis wo con IMPRESSION: There is a ventral wall hernia containing intraperitoneal fat, nonobstructed:, And is accompanied by fat stranding within the hernia sac in the adjacent anterior abdominal wall. This was present on the previous study. No bowel obstruction or obstructive uropathy. Additional chronic findings are noted as above. Impression dictated by: Ad Orozco M.D. 12/30/2024 1:06 PM Dictation Location: [place] [address] Electronically authenticated by: [id number] Y Date: 12/30/2024 13:06 Dictated By: Ad Orozco M.D. Signed By: 12/30/24 1309 DD/ 1306 TD/TT: Vegetable Thinner: Reason For Referral No Information Medications Medication SIG (Take, Route, Frequency, Duration) Notes Start Date End Date Status Adipex-P 37.5 MG 1 tablet before breakfast Orall y Once a day 5Active Immunizations Vaccine Route Administration Date Status Comme nts Flu, Flucelvax (10445) 6 mos and older, single-dose syringe (0311-8926) IM Intramuscular 01/17/2025 Administered Social History Tobacco Use: Social History Observation Description Date Details (start date - stop date) Former Smoker 03/24/2010 - 03/24/2014 Tobacco Use/Smoking Question Answer Notes Patient is a former smoker When did you start smoking?03/24/2010When did you stop smoking?03/24/2014lcohol Screen (Audit-C) Question Answer Notes Did you have a drink containing alcohol in the p ast year? Yes How often did you have a drink containing alcohol in the past year?Less than monthly (1 point)Nejxzp2TyavitoitskyllIonagetpOMOEV-K (Standard) Question Answer Notes Did you have a drink containing alcohol in the p ast year? No Vnqkdd3BcpfrkufdxsxpjLdrlyidc Problems Problem Type SNOMED Code ICD Code Onset Dates Problem Status W/U Status Risk Notes Problem Well adult (715957408) Well adult (Z00.00 ) ActiveconfirmedProblemHernia of anterior abdominal wall (disorder) (877235113) Abdominal wall hernia (K43.9)ActiveconfirmedProblemIntestinal obstruction (07478044)Colon obstruction (K56.609)ActiveconfirmedProblemPlain X-ray of chest abnormal (finding) (4967636991)Abnormal chest x-ray (R93.89)Activeconfirmed Vital Signs Temperature 98.4 degrees Fahrenheit 01/17/2025 Blood pressure nzlcweyii91 mm Hg01/17/20250303Frrger37 in01/17/2025lood pressure pidvpsyi499 mm Hg01/17/20256011Johgsa184 lbs1MI50.94 kg/m201/17/2025 Encounters Encounter Location Date Provider Diagnosis [facility] [address] [place] [address] 12/30/[address] [facility] [place] [address] 12/30/2024[facility] [facility] [place] [address]/11/2024[facility] [facility] [place] [address]/Doug HoyAbdominal wall hernia K43.9[place] [address] [facility] [place] [address]/ Jefry [facility] [facility] [place] [address]/11/2024Doug HoyColon obstruction K56.609 and Abdominal wall hernia K43.9[place] [address] [place] [address] 01/17/2025Doug HoyAbdominal wall hernia K43.9 and Encounter for immunization Z23 Assessments Encounter Date Diagnosis (ICD Code) Assessment Notes Treatment Notes Treatment Clinical Notes Section Notes 12/30/2024 Colon obstruction (ICD-10 - K56. 609) 12/30/2024bdominal wall hernia (ICD-10 - K43.9)01/17/2025bdominal wall hernia (ICD-10 - K43.9) Diuscssed his borderline HTN - watching salt and caffeine better - Cleared for OR 01/17/2025bdominal wall hernia (ICD-10 - K43.9)01/17/2025Encounter for immunization (ICD-10 - Z23) Plan Of Treatment Pending Test Test Name Order Date CMP (COMPLETE METABOLIC PANEL) 4 HEMOGLOBIN A1C (GLYCO) 05/12/2023 INSULIN, TOTAL 05/12/2023 LIPID PANEL (CHOL/TRIG/HDL/LDL) 05/12/19 24 CBC WITH DIFF 05/12/2023 COVID-19, Flu A+B IH 01/02/2024 CT ABD and PELVIS WO CON 12/30/2024 CT CHEST HI RESOLUTION 12/12/2023 THYROID PANEL (T4/TSH/FREE T3) 4 Next Appt Details Provider Name:Jefry Hastings, 09:15:00 AM, [address] [facility] [address], [place], [address], Insurance Providers Payer Name Payer Address Payer Phone Subscriber Number Group Number Insured Name Patient Relationship to Insured Coverage Start Date Coverage End Date DEIRDRE CUEVAS [address] [place] [address] [id number] Danny Nelson - patient is the insured Medications Administered Medication Instructions Date of Administration Dosage Notes Ceftriaxone 1 gram gCeftriaxone 1 gram g Medical (General) History Medical History History ICD Code COVID-19 U07.1 Eczema L30.9 Incisional hernia K43.2 Asthma J45.909 Surgical History Surgery Date(Month/Year) Hernia Repair APPENDECTOMY
--- NOTE | 2025-02-09 21:07 | ED.EXTPRO1 ---
HPI - Extremity Problem General Chief complaint: Extremity Problem, Nontraumatic Stated complaint: le pain Time Seen by Provider: 02/09/25 20:11 Source: patient Mode of arrival: walk-in Limitations: no limitations History of Present Illness HPI Narrative: This 29-year-old male who is status post right inguinal hernia surgery repair at [facility] on 01/31/2025 presents for evaluation of right leg pain and swelling. The patient states that he noticed that he was having this pain and swelling after getting home a week and a half ago. He was seen for his postop follow-up today and explained to his doctor that he was having leg pain and swelling at [facility] and ultrasound was ordered. He was unaware of the results of the ultrasound and his mother brought him to the emergency department. He denies any chest pain or shortness of breath to me. He denies any dizziness tachycardia or palpitations. He states he has been babying the right leg. He is otherwise ambulatory. He denies any lower abdominal pain or swelling. He does not have any scrotal pain or swelling. Related Data Home Medications ?Medication ?Instructions ?Recorded ?Confirmed hydrocodone 5 mg-acetaminophen 325 tab 02/09/25 mg tablet Allergies Allergy/AdvReac Type Severity Reaction Status Date / Time No Known Drug Allergies Allergy Verified 02/09/25 20:11 Review of Systems ROS Status of ROS 10 or more systems reviewed and unremarkable except as noted in history and below PFSH PFSH Social History Little interest or pleasure in doing things: not at all Feeling down, depressed, or hopeless: not at all Exam Narrative Exam Narrative: Vital signs and Nursing Notes reviewed: Patient's temperature is mildly elevated 99.4, pulse is elevated 95, he blood pressure is elevated 155/90, he is not hypoxic with pulse ox of 97% on room air General: Awake, alert, oriented, overweight adult male, no acute distress, lying comfortably on the stretcher HEENT: Normocephalic atraumatic, mucous membranes are moist and pink, eyes are clear, normal conjunctiva, vision is grossly intact Neck: Supple, no meningeal signs, no anterior or posterior cervical lymphadenopathy Chest: Lungs are clear to auscultation with good air entry, there is no wheezing rhonchi or rales appreciated no accessory muscle use, patient is speaking in complete sentences-no chest wall tenderness to palpation CVS: Regular rate and rhythm S1-S2, no murmurs rubs or gallops, pulses are brisk and equal bilaterally ABD: Soft, nondistended, nontender, no rebound guarding or rigidity, bowel sounds are normal, abdominal incisions on the left side of the abdomen are clean dry and intact. There is mild tenderness in the right lower quadrant, there is no scrotal tenderness or swelling appreciated no bruising noted Extremities: Moving all extremities, both legs are large, the right leg is 20 cm, left leg is 19 cm, feet are warm and sensate Skin: Normal in appearance without rash,pallor, petechiae or purpura Neuro: No focal deficits Constitutional Vital Signs, click to edit/add: Last Vital Signs Temp 99.4 F 02/09/25 20:12 Pulse 95 H 02/09/25 20:12 Resp 19 02/09/25 20:12 BP 155/90 H 02/09/25 20:12 Pulse Ox 97 02/09/25 20:12 O2 Del Method Room Air 02/09/25 20:12 Course Vital Signs Vital signs: Vital Signs Temperature 99.4 F 02/09/25 20:12 Pulse Rate 95 H 02/09/25 20:12 Respiratory Rate 19 02/09/25 20:12 Blood Pressure 155/90 H 02/09/25 20:12 Pulse Oximetry 97 02/09/25 20:12 Oxygen Delivery Method Room Air 02/09/25 20:12 Temperature 99.4 F 02/09/25 20:12 Pulse Rate 95 H 02/09/25 20:12 Respiratory Rate 02/09/25 20:12 Blood Pressure 155/90 H 02/09/25 20:12 Pulse Oximetry 97 02/09/25 20:12 Oxygen Delivery Method Room Air 02/09/25 20:12 MDM - Extremity (Nontraumatic) MDM Narrative Medical decision making narrative: This 29-year-old male presents for evaluation of right lower extremity pain and swelling. He has status post right inguinal hernia surgery repair at [facility] on 01/31/2025. His legs are grossly normal in appearance. There is no redness swelling or palpable cords in the posterior right leg. Feet are warm and sensate. We did contact [facility] where he had bilateral duplex ultrasounds earlier today. The duplex ultrasounds at that time were negative. In the meantime I had ordered an ultrasound of the right lower extremity. This ultrasound was read by radiology and is negative for acute findings. I encouraged him to continue to be as active as possible and follow-up closely with his [facility] physician return to emergency department as needed for ongoing or worsening symptoms or any concerns. Imaging Data Venous US: Radiologist's impression: Right lower extremity duplex ultrasound negative for DVT Discharge Plan Discharge Chief Complaint: Extremity Problem, Nontraumatic Clinical Impression: Leg pain, right Patient Disposition: Home, Self-Care Time of Disposition Decision: 21:43 Condition: Good Prescriptions / Home Meds: No Action hydrocodone-acetaminophen 5-325 mg tablet Print Language: Sri [place] Instructions: Leg Pain (ED) Referrals: Steve Cheung MD [Primary Care Provider, Family Practice] - 1 week
== END 2025-02-09 21:51 | disposition home or self-care (01) ==
PROVIDERS: Emergency Provider Emergency Medicine; PCP Family Medicine
DX: M79.604 Pain in right leg (principal); Z98.890 Other specified postprocedural states
CPT/HCPCS: 93971; 99284